=== PATIENT | male | born 1925 | race Caucasian/White ===

== ENCOUNTER 2016-04-28 23:02 | Inpatient (IN) | payer OTHER, BC ==
[2016-04-28 23:14] VITALS: BMI 24.6
--- NOTE | 2016-04-28 23:48 | PDOC ---
History of Present Illness - General History Source: Patient, Family (, Son), Old Records Exam Limitations: No Limitations - History of Present Illness Initial Comments: 04/29/16 00:03 The patient is an 89 year old male, with a significant past medical history of HTN, hyperlipidemia, GERD, [place] (2005), urostomy (ileal conduit) s/p bladder CA and a known periumbilical hernia, who presents to the emergency department with nausea and abdominal pain since approximately 2PM this afternoon. The patient localizes his abdominal pain to the periumbilical region. The patients and son are with him in the ED. His states that he has had a decreased appetite all day today due to the nausea. The patient denies fever, chills, any recent illnesses, vomiting, diarrhea or any dysuria. The patient denies shortness of breath or chest pain. Allergies: Levofloxacin Past Surgical History: Urostomy placement (2001) Social History: Non smoker. Denies alcohol or drug use. PCP: Dr. Rodney <Erma Bonilla - Last Filed: 04/29/16 00:03> <Donte Szymanski - Last Filed: 04/29/16 16:01> - General Chief Complaint: Pain, Acute Stated Complaint: ABD PAIN Time Seen by Provider: 04/28/16 23:04 Past History <Erma Bonilla - Last Filed: 04/29/16 00:03> - Past Medical History Asthma: No Cardiac Disorders: Yes (mi 2005) CVA: No COPD: No CHF: No Diabetes: No GI Disorders: Yes Disorders: Yes (urostomy s/p bladder ca) HTN: Yes Hypercholesterolemia: Yes Seizures: No Thyroid Disease: No - Surgical History Abdominal Surgery: Yes (urostomy s/p bladder ca) Appendectomy: No Cardiac Surgery: No Cholecystectomy: No Lung Surgery: No Neurologic Surgery: No Orthopedic Surgery: No - Immunization History Immunization Up to Date: Yes - Psycho/Social/Smoking Cessation Hx Anxiety: No Suicidal Ideation: No Smoking Status: No Smoking History: Never smoked Number of Cigarettes Smoked Daily: 0 Hx Alcohol Use: No Drug/Substance Use Hx: No Substance Use Type: None Hx Substance Use Treatment: No <Donte Szymanski - Last Filed: 04/29/16 16:01> - Past Medical History Allergies/Adverse Reactions: Allergies Allergy/AdvReac Type Severity Reaction Status Date / Time levofloxacin [From Levaquin] AdvReac Verified 04/28/16 23:12 Home Medications: Ambulatory Orders Aspirin 81 mg PO DAILY #0 04/06/11 Cholecalciferol (Vitamin D3) [Vitamin D3] 2,000 unit PO DAILY 09/28/13 Metoprolol Succinate [Toprol XL -] 12.5 mg PO DAILY 09/28/13 Co Q 10 100 mg PO DAILY 04/29/16 Review of Systems - Review of Systems Able to Perform ROS?: Yes Comments:: 04/28/16 23:52 GENERAL/CONSTITUTIONAL: +Decreased appetite. No fever or chills. No weakness. HEAD, EYES, EARS, NOSE AND THROAT: No change in vision. No ear pain or discharge. No sore throat. CARDIOVASCULAR: No chest pain or shortness of breath. RESPIRATORY: No cough, wheezing, or hemoptysis. GASTROINTESTINAL: +Nausea, abdominal pain. No vomiting, diarrhea or constipation. GENITOURINARY: No dysuria, frequency, or change in urination. MUSCULOSKELETAL: No joint or muscle swelling or pain. No neck or back pain. SKIN: No rash. NEUROLOGIC: No headache, vertigo, loss of consciousness, or change in strength/ sensation. ENDOCRINE: No increased thirst. No abnormal weight change. HEMATOLOGIC/LYMPHATIC: No anemia, easy bleeding, or history of blood clots. ALLERGIC/IMMUNOLOGIC: No hives or skin allergy. <Erma Bonilla - Last Filed: 04/29/16 00:03> *Physical Exam - Vital Signs Last Vital Signs Temp Pulse Resp BP Pulse Ox 97.7 F 66 17 188/73 97 04/28/16 23:12 04/28/16 23:12 04/28/16 23:12 04/28/16 23:12 04/28/16 23:12 - Physical Exam Comments: 04/28/16 23:53 GENERAL: Awake, alert, and fully oriented, in no acute distress. HEAD: No signs of trauma. EYES: PERRLA, EOMI, sclera anicteric, conjunctiva clear. ENT: Auricles normal inspection, hearing grossly normal, nares patent, oropharynx clear without exudates. Moist mucosa. NECK: Normal ROM, supple, no lymphadenopathy, JVD, or masses. LUNGS: Breath sounds equal, clear to auscultation bilaterally. No wheezes, and no crackles. HEART: Regular rate and rhythm, normal S1 and S2, no murmurs, rubs or gallops. ABDOMEN: Periumbilical tenderness to palpation with a hernial defect. Ileostomy bag in place. Soft, normoactive bowel sounds. No guarding, no rebound. No masses. EXTREMITIES: Normal range of motion, no edema. No clubbing or cyanosis. No cords, erythema, or tenderness. NEUROLOGICAL: Cranial nerves II through XII grossly intact. Normal speech, gait is deferred. SKIN: Warm, dry, normal turgor, no rashes or lesions noted. <Erma Bonilla - Last Filed: 04/29/16 00:03> - Vital Signs Last Vital Signs Temp Pulse Resp BP Pulse Ox 97.7 F 66 17 188/73 97 04/28/16 23:12 04/28/16 23:12 04/28/16 23:12 04/28/16 23:12 04/28/16 23:12 <Donte Szymanski - Last Filed: 04/29/16 16:01> ED Treatment Course - LABORATORY CBC & Chemistry Diagram: 04/29/16 00:50 04/29/16 00:50 <Donte Szymanski - Last Filed: 04/29/16 16:01> *DC/Admit/Observation/Transfer - Attestations Scribe Attestion: 04/28/16 23:52 Documentation prepared by Erma Bonilla, acting as faculty i on call medical assistant for Donte Szymanski MD, /. <Erma Bonilla - Last Filed: 04/29/16 00:03> - Discharge Dispostion Admit: Yes <Donte Szymanski - Last Filed: 04/29/16 16:01> Diagnosis at time of Disposition: Small bowel obstruction - Discharge Dispostion Condition at time of disposition: Stable - Referrals
[2016-04-29] MEDS: SODIUM CHLORIDE 1,000 ML IV SCH (01:11)
[2016-04-29 01:15] LABS: BASOPHIL 0.3 % (0-2.0); MCH 30.2 pg (25.7-33.7); MCHC 33.5 g/dl (32.0-35.9); MEAN CELL VOLUME 90.1 fl (80-96); MEAN PLT VOLUME 9.2 fl (7.5-11.1); PLATELET COUNT 194 K/MM3 (134-434)
[2016-04-29 01:33] LABS: INR 1.14 (0.82-1.09); PROTHROMBIN TIME (PATIENT) 12.6 SEC (9.98-11.88)
[2016-04-29 01:36] LABS: ACTIVATED PTT 32.7 SECONDS (26.9-34.4)
[2016-04-29 01:42] LABS: ALBUMIN 3.6 g/dl (3.4-5.0); BILIRUBIN,TOTAL 1.1 mg/dL (0.2-1.0); CREATININE 1.3 mg/dL (0.7-1.3); TOT PROT 7.6 g/dl (6.4-8.2)
--- NOTE | 2016-04-29 03:47 | PDOC ---
*Physical Exam - Vital Signs Last Vital Signs Temp Pulse Resp BP Pulse Ox 97.7 F 66 17 188/73 97 04/28/16 23:12 04/28/16 23:12 04/28/16 23:12 04/28/16 23:12 04/28/16 23:12 ED Treatment Course - LABORATORY CBC & Chemistry Diagram: 04/29/16 00:50 04/29/16 00:50 - ADDITIONAL ORDERS Additional order review: Laboratory Results 04/29/16 04/29/16 00:50 00:50 INR 1.14 PTT (Actin FS) 32.7 Sodium 138 Potassium 4.5 D Chloride 101 Carbon Dioxide 27 Anion Gap 10 BUN 24 H D Creatinine 1.3 D Creat Clearance w eGFR 52.10 Random Glucose 142 H D Calcium 9.0 Total Bilirubin 1.1 H D AST 19 D ALT 15 D Alkaline Phosphatase 59 D Total Protein 7.6 D Albumin 3.6 D Lipase 79 04/29/16 00:50 RBC 4.45 D MCV 90.1 MCHC 33.5 RDW 15.0 MPV 9.2 Neutrophils % 92.0 H D Lymphocytes % 3.9 L D Monocytes % 3.8 Eosinophils % 0.0 D Basophils % 0.3 *DC/Admit/Observation/Transfer Diagnosis at time of Disposition: Small bowel obstruction - Discharge Dispostion Condition at time of disposition: Stable Admit: Yes - Referrals - Patient Instructions - Post Discharge Activity
--- NOTE | 2016-04-29 09:36 | CONSULT ---
Consult Consult Specialty:: Surgery Reason for Consultation:: Intestinal obstruction, incarcerated ventral hernia. - History of Present Illness History of Present Illness: 89 year old man, who is hard of hearing, is admitted with abdominal pain yesterday afternoon. He feels better now. His is with him. He is s/p total cystectomy with ileal bladder , performed about 15 years ago, at [facility]. He feels better today and wants the NG tube out. He has no abdominal pain, currently. - History Source History Provided By: Patient, Family Member - Past Medical History CAT SITTER: Yes: Dementia Cardio/Vascular: Yes: CAD, HTN, Hyperlipdemia Renal/: Yes: Cancer (bladder ca s/p uorstomy) - Past Surgical History Past Surgical History: Yes: Cystectomy, Stent - Alcohol/Substance Use Hx Alcohol Use: No - Smoking History Smoking history: Never smoked Have you smoked in the past 12 months: No Aproximately how many cigarettes per day: 0 Home Medications - Allergies Allergies/Adverse Reactions: Allergies Allergy/AdvReac Type Severity Reaction Status Date / Time levofloxacin [From Levaquin] AdvReac Verified 04/28/16 23:12 - Home Medications Home Medications: Ambulatory Orders Aspirin 81 mg PO DAILY #0 04/06/11 Cholecalciferol (Vitamin D3) [Vitamin D3] 2,000 unit PO DAILY 09/28/13 Metoprolol Succinate [Toprol XL -] 12.5 mg PO DAILY 09/28/13 Co Q 10 100 mg PO DAILY 04/29/16 Physical Exam Vital Signs: Vital Signs Temperature 98 F 04/29/16 09:00 Pulse Rate 70 04/29/16 09:00 Respiratory Rate 18 04/29/16 09:00 Blood Pressure 157/86 04/29/16 09:00 O2 Sat by Pulse Oximetry (%) 98 04/29/16 08:57 Gastrointestinal: Yes: Normal Bowel Sounds, Soft (Abdomen : Ileal conduit in right side of the abdomen. There are multiple, ventral hernias, 1) below and to the left of the umbilicus, which was painful on admission. Currently not tender , and no bowel or abdominal contents are palpated within the hernia. Another reducible hernia in right upper quadrant of abdomen. No abdominal distention , not tender.) Imaging - Results Cat Scan: Report Reviewed, Image Reviewed Problem List - Problems (1) Small bowel obstruction Code(s): K56.69 - OTHER INTESTINAL OBSTRUCTION (2) Incarcerated ventral hernia Code(s): K46.0 - UNSP ABDOMINAL HERNIA WITH OBSTRUCTION, WITHOUT GANGRENE (3) CAD (coronary artery disease) Code(s): I25.10 - ATHSCL HEART DISEASE OF [place] CORONARY ARTERY W/O ANG PCTRS (4) History of urostomy Code(s): Z98.89 - OTHER SPECIFIED POSTPROCEDURAL STATES * DO NOT USE * (5) History of urologic surgery Code(s): Z98.89 - OTHER SPECIFIED POSTPROCEDURAL STATES * DO NOT USE * Assessment/Plan Patient seems to have improved after admission. He has no abdominal pain , no tenderness. Will do follow up abdominal X-ray. If improved will D/C or clamp NG tube.
[2016-04-29] MEDS: CHOLECALCIFEROL (VITAMIN D3) 1,000 UNIT TABLET (FP) PO SCH (09:59)
[2016-04-29] MEDS: ASPIRIN 81 MG CHEWABLE TABLETS PO SCH (09:59)
[2016-04-29] MEDS: METOPROLOL SUCCINATE 25 MG TAB.SR.24H (FP) PO SCH (09:59)
--- NOTE | 2016-04-29 11:04 | EKG ---
Test Reason : Blood Pressure : / mmHG Vent. Rate : 067 BPM Atrial Rate : 067 BPM P-R Int : 244 ms QRS Dur : 108 ms QT Int : 452 ms P-R-T Axes : 090 -60 030 degrees QTc Int : 477 ms SINUS RHYTHM WITH SINUS ARRHYTHMIA WITH 1ST DEGREE A-V BLOCK PULMONARY DISEASE PATTERN LEFT ANTERIOR FASCICULAR BLOCK ABNORMAL ECG Confirmed by SANDRA LEWIS MD ([id number]) on 04/29/2016 11:03:53 AM Referred By: Confirmed By:SANDRA LEWIS MD
[2016-04-29 11:12] LABS: URINE APPEARANCE TURBID; URINE BILIRUBIN NEGATIVE (NEGATIVE); URINE COLOR AMBER; URINE GLUCOSE (UA) NEGATIVE (NEGATIVE); URINE KETONE NEGATIVE (NEGATIVE); URINE NITRITE NEGATIVE (NEGATIVE); URINE UROBILINOGEN NEGATIVE E.U./dl (0.2-1.0)
[2016-04-29 11:14] LABS: URINE BLOOD 1+ (NEGATIVE); URINE LEUK ESTERASE 3+ (NEGATIVE); URINE PROTEIN 2+ (NEGATIVE)
[2016-04-29 11:17] LABS: URINE RBC 35 /hpf (0-3); URINE WBC 1944 /hpf (3-5)
--- NOTE | 2016-04-29 11:48 | HP ---
Admitting History and Physical - Admission History of Present Illness: 89 year old male, with a significant past medical history of HTN, hyperlipidemia , GERD, [place] (2006), urostomy (ileal conduit) s/p bladder CA and a known periumbilical hernia, who presents to the emergency department with nausea and abdominal pain since approximately 2PM this afternoon. The patient localizes his abdominal pain to the periumbilical region. The patients and son are with him in the ED. His states that he has had a decreased appetite all day today due to the nausea. The patient denies fever, chills, any recent illnesses, vomiting, diarrhea or any dysuria. The patient denies shortness of breath or chest pain. 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 Cardiovascular: Yes: CAD, HTN, Hyperlipdemia, Other (mild aortic root dilation) Renal/: Yes: Cancer (bladder ca s/p ileal conduet) - Past Surgical History Past Surgical History: Yes: Cystectomy, Stent - Smoking History Smoking history: Never smoked Have you smoked in the past 12 months: No Aproximately how many cigarettes per day: 0 - Alcohol/Substance Use Hx Alcohol Use: No Home Medications - Allergies Allergies/Adverse Reactions: Allergies Allergy/AdvReac Type Severity Reaction Status Date / Time levofloxacin [From Levaquin] AdvReac Verified 04/28/16 23:12 - Home Medications Home Medications: Ambulatory Orders Aspirin 81 mg PO DAILY #0 04/06/11 Cholecalciferol (Vitamin D3) [Vitamin D3] 2,000 unit PO DAILY 09/28/13 Metoprolol Succinate [Toprol XL -] 12.5 mg PO DAILY 09/28/13 Co Q 10 100 mg PO DAILY 04/29/16 Physical Examination Vital Signs: Vital Signs Temperature 98 F 04/29/16 09:00 Pulse Rate 70 04/29/16 09:00 Respiratory Rate 18 04/29/16 09:00 Blood Pressure 157/86 04/29/16 09:00 O2 Sat by Pulse Oximetry (%) 98 04/29/16 08:57 Cardiovascular: Yes: Regular Rate and Rhythm Respiratory: Yes: Regular, CTA Bilaterally Gastrointestinal: Yes: Normal Bowel Sounds, Soft. No: Tenderness Edema: No Neurological: Yes: Alert, Oriented Imaging - Results Cat Scan: Report Reviewed Problem List - Problems (1) Incarcerated ventral hernia Assessment/Plan: NPO SURGERY ON BPARD T FUA Code(s): K46.0 - UNSP ABDOMINAL HERNIA WITH OBSTRUCTION, WITHOUT GANGRENE (2) Small bowel obstruction Assessment/Plan: ABOVE Code(s): K56.69 - OTHER INTESTINAL OBSTRUCTION (3) Bladder cancer Assessment/Plan: S/P ILEAL CONDUIT Code(s): C67.9 - MALIGNANT NEOPLASM OF BLADDER, UNSPECIFIED (4) CAD (coronary artery disease) Assessment/Plan: MONITOR Code(s): I25.10 - ATHSCL HEART DISEASE OF [place] CORONARY ARTERY W/O ANG PCTRS (5) Dilated aortic root Assessment/Plan: ECHO Code(s): I77.810 - THORACIC AORTIC ECTASIA
[2016-04-30] MEDS: SODIUM CHLORIDE 1,000 ML IV SCH ×2 (04:55→19:34)
[2016-04-30 07:14] LABS: BASOPHIL 0.1 % (0-2.0); MCH 30.3 pg (25.7-33.7); MCHC 33.4 g/dl (32.0-35.9); MEAN CELL VOLUME 90.6 fl (80-96); MEAN PLT VOLUME 8.6 fl (7.5-11.1); NEUTROPHILS 84.3 % (42.8-82.8); PLATELET COUNT 158 K/MM3 (134-434); RDW 14.8 % (11.9-15.9); WHITE BLOOD COUNT 9.1 K/mm3 (4.0-10.0)
[2016-04-30 07:41] LABS: BILIRUBIN,TOTAL 1.1 mg/dL (0.2-1.0); CALCIUM 8.2 mg/dL (8.5-10.1); CREATININE 1.2 mg/dL (0.7-1.3); TOT PROT 6.2 g/dl (6.4-8.2)
[2016-04-30] MEDS: ASPIRIN 81 MG CHEWABLE TABLETS PO SCH (09:21)
[2016-04-30] MEDS: METOPROLOL SUCCINATE 25 MG TAB.SR.24H (FP) PO SCH (09:22)
[2016-04-30] MEDS: CHOLECALCIFEROL (VITAMIN D3) 1,000 UNIT TABLET (FP) PO SCH (09:22)
--- NOTE | 2016-04-30 11:05 | PN ---
Progress Note (short form) - Note Progress Note: Surgery Attending Covering for Dr. Miller Patient feels better with no abdominal pain Denies flatus or BM Ngt drained 1400/24h, 200 overnight Afebrile, VSS WBC = 9K Abd: non-distended, mild tenderness over upper right parastomal area A: partial SBO R: f/u FUA today, continue NGT decompression, IVF
--- NOTE | 2016-04-30 11:49 | PN ---
Progress Note, Physician Chief Complaint: THIS IS MY FIRST MEDICAL ENCOUNTER WITH THIS PATIENT CHART AND EVENTS REVIEWED AWAKE, FAMILY BEDSIDE NGT IN PLACE WITH DRAINAGE - Current Medication List Current Medications: Active Medications Aspirin (Asa -) 81 mg PO DAILY [facility] Last Admin: 04/30/16 09:21 Dose: 81 mg Cholecalciferol (Vitamin D3 -) 2,000 unit PO DAILY [facility] Last Admin: 04/30/16 09:22 Dose: 2,000 unit Sodium Chloride (Normal Saline -) 1,000 mls @ 125 mls/hr IV ASDIR [facility] Last Admin: 04/30/16 04:55 Dose: 125 mls/hr Metoprolol Succinate (Toprol Xl -) 12.5 mg PO DAILY [facility] Last Admin: 04/30/16 09:22 Dose: 12.5 mg - Objective Vital Signs: Vital Signs Temperature 98.4 F 04/30/16 06:46 Pulse Rate 82 04/30/16 06:46 Respiratory Rate 18 04/30/16 06:46 Blood Pressure 150/82 04/30/16 06:46 O2 Sat by Pulse Oximetry (%) 97 04/29/16 16:00 Constitutional: Yes: Mild Distress Eyes: Yes: WNL HENT: Yes: WNL Neck: Yes: WNL Cardiovascular: Yes: WNL Respiratory: Yes: WNL Gastrointestinal: Yes: Tenderness Genitourinary: Yes: Other Musculoskeletal: Yes: Muscle Weakness Extremities: Yes: WNL Edema: No Peripheral Pulses WNL: Yes Integumentary: Yes: WNL Wound/Incision: Yes: Clean/Dry Neurological: Yes: Confusion, Pre-Existing Deficit ...Motor Strength: LLE, RLE Labs: CBC, BMP 04/30/16 06:50 04/30/16 06:50 INR, PTT INR 1.14 (0.82-1.09) 04/29/16 00:50 Problem List - Problems (1) Dilated aortic root Code(s): I77.810 - THORACIC AORTIC ECTASIA (2) History of urologic surgery Code(s): Z98.89 - OTHER SPECIFIED POSTPROCEDURAL STATES * DO NOT USE * (3) Incarcerated ventral hernia Code(s): K46.0 - UNSP ABDOMINAL HERNIA WITH OBSTRUCTION, WITHOUT GANGRENE (4) Small bowel obstruction Code(s): K56.69 - OTHER INTESTINAL OBSTRUCTION (5) Bladder cancer Code(s): C67.9 - MALIGNANT NEOPLASM OF BLADDER, UNSPECIFIED (6) CAD (coronary artery disease) Code(s): I25.10 - ATHSCL HEART DISEASE OF [place] CORONARY ARTERY W/O ANG PCTRS (7) Constipation Code(s): K59.00 - CONSTIPATION, UNSPECIFIED (8) Fever Code(s): R50.9 - FEVER, UNSPECIFIED (9) History of urostomy Code(s): Z98.89 - OTHER SPECIFIED POSTPROCEDURAL STATES * DO NOT USE * (10) UTI (lower urinary tract infection) Code(s): N39.0 - URINARY TRACT INFECTION, SITE NOT SPECIFIED Assessment/Plan NGT IN PLACE WITH GREE/DARK DRAINAGE SBO MONITORED DAILY NO FEVERS UTI++ WILL HOLD ABX FOR NOW AND ID CONSULT DR CAMPBELL DVT PROPHYLAXIS HERNIA STABLE
[2016-05-01 07:44] LABS: MCH 30.3 pg (25.7-33.7); MCHC 33.3 g/dl (32.0-35.9); MEAN CELL VOLUME 91.2 fl (80-96); MEAN PLT VOLUME 8.7 fl (7.5-11.1); PLATELET COUNT 147 K/MM3 (134-434); WHITE BLOOD COUNT 7.9 K/mm3 (4.0-10.0)
[2016-05-01 08:25] LABS: ALBUMIN 2.6 g/dl (3.4-5.0); ANION GAP 12 (8-16); CALCIUM 7.8 mg/dL (8.5-10.1); CO2 22 mmol/L (21-32); MAGNESIUM 2.1 mg/dL (1.8-2.4)
[2016-05-01 08:30] LABS: ALK PHOS 47 U/L (45-117); BILIRUBIN,TOTAL 1.1 mg/dL (0.2-1.0); CREATININE 1.1 mg/dL (0.7-1.3); GLUCOSE,RANDOM 67 mg/dL (74-106); PHOSPHOROUS 2.3 mg/dL (2.5-4.9); SGOT/AST 16 U/L (15-37); SGPT/ALT 11 U/L (12-78); TOT PROT 5.6 g/dl (6.4-8.2)
[2016-05-01] MEDS: ASPIRIN 81 MG CHEWABLE TABLETS PO SCH (09:40)
[2016-05-01] MEDS: CHOLECALCIFEROL (VITAMIN D3) 1,000 UNIT TABLET (FP) PO SCH (09:40)
[2016-05-01] MEDS: METOPROLOL SUCCINATE 25 MG TAB.SR.24H (FP) PO SCH (09:40)
--- NOTE | 2016-05-01 11:05 | PN ---
Progress Note, Physician Chief Complaint: ID Full note dictated - Current Medication List Current Medications: Active Medications Aspirin (Asa -) 81 mg PO DAILY [facility] Last Admin: 05/01/16 09:40 Dose: 81 mg Cholecalciferol (Vitamin D3 -) 2,000 unit PO DAILY [facility] Last Admin: 05/01/16 09:40 Dose: 2,000 unit Sodium Chloride (Normal Saline -) 1,000 mls @ 125 mls/hr IV ASDIR [facility] Last Admin: 04/30/16 19:34 Dose: Not Given Metoprolol Succinate (Toprol Xl -) 12.5 mg PO DAILY [facility] Last Admin: 05/01/16 09:40 Dose: 12.5 mg - Objective Vital Signs: Vital Signs Temperature 97.8 F 05/01/16 06:13 Pulse Rate 72 05/01/16 06:13 Respiratory Rate 20 05/01/16 06:13 Blood Pressure 162/79 05/01/16 06:13 O2 Sat by Pulse Oximetry (%) 97 04/30/16 21:00 Cardiovascular: Yes: Regular Rate and Rhythm, S1, S2 Respiratory: Yes: WNL, Regular, CTA Bilaterally, Diminished Gastrointestinal: Yes: Soft, Other (Ileostomy) Edema: No Labs: CBC, BMP 05/01/16 06:15 05/01/16 06:15 INR, PTT INR 1.14 (0.82-1.09) 04/29/16 00:50 Problem List - Problems (1) Small bowel obstruction Code(s): K56.69 - OTHER INTESTINAL OBSTRUCTION (2) UTI (urinary tract infection) Code(s): N39.0 - URINARY TRACT INFECTION, SITE NOT SPECIFIED Assessment/Plan Microbiology 04/29/16 10:39 Urine - Urostomy Bag Urine Culture - Final Escherichia Coli Laboratory Tests 04/29/16 05/01/16 10:30 06:15 WBC 7.9 Hgb 11.1 L Plt Count 147 Ur Leukocyte Esterase 3+ H Urine RBC 35 Urine WBC 1944 Assessment Asymptomatic bacteruria Plan No antibiotics at this time Maria Luz ORTIZ
--- NOTE | 2016-05-01 11:28 | PN ---
Progress Note, Physician Chief Complaint: AWAKE ALERT FEELING BETTER NGT IN PLACE FAMILY BEDSIDE - Current Medication List Current Medications: Active Medications Aspirin (Asa -) 81 mg PO DAILY [facility] Last Admin: 05/01/16 09:40 Dose: 81 mg Cholecalciferol (Vitamin D3 -) 2,000 unit PO DAILY [facility] Last Admin: 05/01/16 09:40 Dose: 2,000 unit Sodium Chloride (Normal Saline -) 1,000 mls @ 125 mls/hr IV ASDIR [facility] Last Admin: 04/30/16 19:34 Dose: Not Given Metoprolol Succinate (Toprol Xl -) 12.5 mg PO DAILY [facility] Last Admin: 05/01/16 09:40 Dose: 12.5 mg - Objective Vital Signs: Vital Signs Temperature 97.8 F 05/01/16 06:13 Pulse Rate 72 05/01/16 06:13 Respiratory Rate 20 05/01/16 06:13 Blood Pressure 162/79 05/01/16 06:13 O2 Sat by Pulse Oximetry (%) 97 04/30/16 21:00 Constitutional: Yes: No Distress Eyes: Yes: WNL HENT: Yes: WNL Neck: Yes: WNL Cardiovascular: Yes: WNL Respiratory: Yes: WNL Gastrointestinal: Yes: WNL Genitourinary: Yes: Other Musculoskeletal: Yes: Muscle Weakness Extremities: Yes: WNL Edema: No Peripheral Pulses WNL: Yes Integumentary: Yes: WNL Wound/Incision: Yes: Clean/Dry Neurological: Yes: WNL ...Motor Strength: WNL Psychiatric: Yes: WNL Labs: CBC, BMP 05/01/16 06:15 05/01/16 06:15 INR, PTT INR 1.14 (0.82-1.09) 04/29/16 00:50 Problem List - Problems (1) Dilated aortic root Code(s): I77.810 - THORACIC AORTIC ECTASIA (2) History of urologic surgery Code(s): Z98.89 - OTHER SPECIFIED POSTPROCEDURAL STATES * DO NOT USE * (3) Incarcerated ventral hernia Code(s): K46.0 - UNSP ABDOMINAL HERNIA WITH OBSTRUCTION, WITHOUT GANGRENE (4) Small bowel obstruction Code(s): K56.69 - OTHER INTESTINAL OBSTRUCTION (5) Bladder cancer Code(s): C67.9 - MALIGNANT NEOPLASM OF [place], UNSPECIFIED (6) CAD (coronary artery disease) Code(s): I25.10 - ATHSCL HEART DISEASE OF [place] CORONARY ARTERY W/O ANG PCTRS (7) Constipation Code(s): K59.00 - CONSTIPATION, UNSPECIFIED (8) Fever Code(s): R50.9 - FEVER, UNSPECIFIED (9) History of urostomy Code(s): Z98.89 - OTHER SPECIFIED POSTPROCEDURAL STATES * DO NOT USE * (10) UTI (lower urinary tract infection) Code(s): N39.0 - URINARY TRACT INFECTION, SITE NOT SPECIFIED Assessment/Plan NGT IN PLACE WITH GREE/DARK DRAINAGE SBO MONITORED DAILY NO FEVERS UTI++ WILL HOLD ABX FOR NOW AND ID CONSULT DR CAMPBELL DVT PROPHYLAXIS HERNIA STABLE UA AND CULTURE REVIEWED NO ABX AT THIS TIME REPEAT ABD XRAY
--- NOTE | 2016-05-01 13:27 | CONS ---
DATE OF CONSULTATION: DATE OF DICTATION: 05/01/2016 The patient is an 89-year-old male who I am asked to see to evaluate a positive urine culture. The patient was originally admitted with abdominal pain. He was seen in consultation by Surgery, noting a history of total cystectomy and ileostomy and a ureterostomy 15 years ago at [facility]. He was seen in consultation by the surgical service, with clinical impression of small-bowel obstruction, incarcerated ventral hernia. He has been managed with conservative management with nasogastric drainage and appears clinically to be improving. He has been afebrile and apparently a urine culture was obtained on admission, which had E coli with significant pyuria noted on urinalysis from the ureterostomy. 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 Past medical history includes surgery as noted above, hypertension, hyperlipidemia, GERD, prior HI, umbilical hernia. MEDICATIONS: Aspirin, metoprolol, vitamin D. Allergies to LEVOFLOXACIN. SOCIAL HISTORY: Never smoked, . No history of alcohol abuse. Family history reviewed and noncontributory. REVIEW OF SYSTEMS: All systems reviewed and noncontributory. PHYSICAL EXAMINATION: General: He was an alert, elderly male, who appeared in no acute distress, sitting in a wheelchair. Vital Signs: Temperature was 97.8, pulse 72, blood pressure 162/79, respirations 20. Neck: Supple. Lungs: Clear to percussion and auscultation with diminished breath sounds bilaterally. Heart: S1, S2. Regular rhythm without audible murmur. Abdomen: Soft and nontender with a ureterostomy. Extremities: Without clubbing, cyanosis or edema. White count 7.9, hemoglobin 11.1, platelets 147, INR 1.1, BUN 24, creatinine 1.1, bilirubin 1.1, AST 16, alkaline phosphatase 47. Urinalysis: 2000 white cells, 35 WBCs, 3+ leukocyte esterase. Urine culture with a rico-susceptible E coli. CAT scan of the abdomen and pelvis dated April 29 was reviewed and showed findings consistent with partial small-bowel obstruction, believed to be related to a parastomal hernia in the right lower quadrant, as well as status post cystectomy with ileal conduit. ASSESSMENT: An 89-year-old male with ileal conduit and asymptomatic bacteruria, growing Escherichia coli. At this point, in view of his asymptomatic status, would not recommend any antibiotic treatment. With regard to small-bowel obstruction he will be continued on conservative management with nasogastric tube and surgical followup. NIKOLAI CAMPBELL M.D. [id number]
--- NOTE | 2016-05-01 16:54 | PN ---
Progress Note (short form) - Note Progress Note: Surgery Patient just passed flatus and had a BM. Denies abdominal pain. NGT = 100 cc gastric fluid Abd: no longer distended, soft, no tenderness WBC=WNL FUA: contrast in colon with improvement of sb dilatation A: Resolving PARTIAL SBO R: keep NGT for now but may have ice chips possible NGT removal in am if patient continues to pass flatus.
[2016-05-02] MEDS: D5-1/2NS+10 MEQ KCL - 1,000 ML IV SCH (07:42)
--- NOTE | 2016-05-02 09:13 | PN ---
Progress Note, Physician Chief Complaint: ID Afebrile NAD NGT out - Current Medication List Current Medications: Active Medications Aspirin (Asa -) 81 mg PO DAILY [facility] Last Admin: 05/01/16 09:40 Dose: 81 mg Cholecalciferol (Vitamin D3 -) 2,000 unit PO DAILY [facility] Last Admin: 05/01/16 09:40 Dose: 2,000 unit Potassium Chloride/Dextrose/Sod Cl (D5-1/2ns+10 Meq Kcl -) 1,000 mls @ 100 mls/ hr IV ASDIR [facility] Metoprolol Succinate (Toprol Xl -) 12.5 mg PO DAILY [facility] Last Admin: 05/01/16 09:40 Dose: 12.5 mg - Objective Vital Signs: Vital Signs Temperature 98.6 F 05/02/16 06:27 Pulse Rate 57 L 05/02/16 06:27 Respiratory Rate 18 05/02/16 06:27 Blood Pressure 178/71 05/02/16 06:27 O2 Sat by Pulse Oximetry (%) 97 05/01/16 21:00 Constitutional: Yes: No Distress HENT: Yes: WNL, Atraumatic Neck: Yes: WNL, Supple Cardiovascular: Yes: Regular Rate and Rhythm, S1, S2. No: Murmur Respiratory: Yes: WNL, Regular, CTA Bilaterally Gastrointestinal: Yes: WNL, Normal Bowel Sounds, Soft. No: Tenderness Edema: No Labs: CBC, BMP 05/01/16 06:15 05/01/16 06:15 INR, PTT INR 1.14 (0.82-1.09) 04/29/16 00:50 Problem List - Problems (1) Small bowel obstruction Code(s): K56.69 - OTHER INTESTINAL OBSTRUCTION (2) UTI (urinary tract infection) Code(s): N39.0 - URINARY TRACT INFECTION, SITE NOT SPECIFIED Assessment/Plan Microbiology 04/29/16 10:39 Urine - Urostomy Bag Urine Culture - Final Escherichia Coli Laboratory Tests 05/01/16 05/01/16 06:15 06:15 WBC 7.9 Hgb 11.1 L Hct 33.5 L Plt Count 147 BUN 24 H Creatinine 1.1 Assessment Asymptomatic bacteruria Plan Will sign off Appreciate request for consultation Maria Luz ORTIZ
--- NOTE | 2016-05-02 10:32 | PN ---
Progress Note, Physician Chief Complaint: ng tube is out pulled out iv line just got back from xray- no intestinal obstruction - Current Medication List Current Medications: Active Medications Aspirin (Asa -) 81 mg PO DAILY [facility] Last Admin: 05/01/16 09:40 Dose: 81 mg Cholecalciferol (Vitamin D3 -) 2,000 unit PO DAILY [facility] Last Admin: 05/01/16 09:40 Dose: 2,000 unit Potassium Chloride/Dextrose/Sod Cl (D5-1/2ns+10 Meq Kcl -) 1,000 mls @ 100 mls/ hr IV ASDIR [facility] Metoprolol Succinate (Toprol Xl -) 12.5 mg PO DAILY [facility] Last Admin: 05/01/16 09:40 Dose: 12.5 mg - Objective Vital Signs: Vital Signs Temperature 98.6 F 05/02/16 06:27 Pulse Rate 57 L 05/02/16 06:27 Respiratory Rate 18 05/02/16 06:27 Blood Pressure 178/71 05/02/16 06:27 O2 Sat by Pulse Oximetry (%) 97 05/01/16 21:00 Constitutional: Yes: Calm Cardiovascular: Yes: Regular Rate and Rhythm, S1, S2 Respiratory: Yes: CTA Bilaterally Gastrointestinal: Yes: Soft, Hypoactive Bowel Sounds, Other (colosotmy) Edema: No Neurological: Yes: Alert, Oriented (to name) Labs: CBC, BMP 05/01/16 06:15 05/01/16 06:15 INR, PTT INR 1.14 (0.82-1.09) 04/29/16 00:50 Problem List - Problems (1) Small bowel obstruction Assessment/Plan: will have surgery follow up regarding if patient can take clear liquid diet or not Code(s): K56.69 - OTHER INTESTINAL OBSTRUCTION (2) UTI (urinary tract infection) Assessment/Plan: no need to treat_ ID saw patient Code(s): N39.0 - URINARY TRACT INFECTION, SITE NOT SPECIFIED (3) CAD (coronary artery disease) Assessment/Plan: aspirin and metoprolol Code(s): I25.10 - ATHSCL HEART DISEASE OF [place] CORONARY ARTERY W/O ANG PCTRS
[2016-05-02] MEDS ORDERED: PT OWN MED DRAWER 7, Y5N ONE (10:57)
[2016-05-02] MEDS: METOPROLOL SUCCINATE 25 MG TAB.SR.24H (FP) PO SCH (11:02)
[2016-05-02] MEDS: ASPIRIN 81 MG CHEWABLE TABLETS PO SCH (11:02)
[2016-05-02] MEDS: CHOLECALCIFEROL (VITAMIN D3) 1,000 UNIT TABLET (FP) PO SCH (11:03)
--- NOTE | 2016-05-02 11:12 | PN ---
Progress Note, Physician - Current Medication List Current Medications: Active Medications Aspirin (Asa -) 81 mg PO DAILY [facility] Last Admin: 05/02/16 11:02 Dose: 81 mg Cholecalciferol (Vitamin D3 -) 2,000 unit PO DAILY [facility] Last Admin: 05/02/16 11:03 Dose: 2,000 unit Potassium Chloride/Dextrose/Sod Cl (D5-1/2ns+10 Meq Kcl -) 1,000 mls @ 100 mls/ hr IV ASDIR [facility] Metoprolol Succinate (Toprol Xl -) 12.5 mg PO DAILY [facility] Last Admin: 05/02/16 11:02 Dose: 12.5 mg - Objective Vital Signs: Vital Signs Temperature 98.6 F 05/02/16 06:27 Pulse Rate 57 L 05/02/16 06:27 Respiratory Rate 18 05/02/16 06:27 Blood Pressure 178/71 05/02/16 06:27 O2 Sat by Pulse Oximetry (%) 97 05/01/16 21:00 Labs: CBC, BMP 05/01/16 06:15 05/01/16 06:15 INR, PTT INR 1.14 (0.82-1.09) 04/29/16 00:50 Problem List - Problems (1) Small bowel obstruction Code(s): K56.69 - OTHER INTESTINAL OBSTRUCTION (2) Incarcerated ventral hernia Code(s): K46.0 - UNSP ABDOMINAL HERNIA WITH OBSTRUCTION, WITHOUT GANGRENE (3) CAD (coronary artery disease) Code(s): I25.10 - ATHSCL HEART DISEASE OF [place] CORONARY ARTERY W/O ANG PCTRS (4) History of urostomy Code(s): Z98.89 - OTHER SPECIFIED POSTPROCEDURAL STATES * DO NOT USE * (5) History of urologic surgery Code(s): Z98.89 - OTHER SPECIFIED POSTPROCEDURAL STATES * DO NOT USE * Assessment/Plan Surgery: Patient has no abdominal pain. He is hungry , wanting to eat. Abdomen is soft, not tender, no abdominal distention. Abdominal X-ray shows no evidence of intestinal obstruction. Patient and his , and daughter were informed of the findings, and resolution of symptoms and intestinal obstruction. He has multiple ventral herniae. Resume oral feeding , starting with liquids today. Discharge home when diet is tolerated.
--- NOTE | 2016-05-03 08:10 | PN ---
Progress Note, Physician History of Present Illness: feels better - Current Medication List Current Medications: Active Medications Aspirin (Asa -) 81 mg PO DAILY [facility] Last Admin: 05/02/16 11:02 Dose: 81 mg Cholecalciferol (Vitamin D3 -) 2,000 unit PO DAILY [facility] Last Admin: 05/02/16 11:03 Dose: 2,000 unit Potassium Chloride/Dextrose/Sod Cl (D5-1/2ns+10 Meq Kcl -) 1,000 mls @ 100 mls/ hr IV ASDIR [facility] Last Admin: 05/02/16 07:42 Dose: Not Given Metoprolol Succinate (Toprol Xl -) 12.5 mg PO DAILY [facility] Last Admin: 05/02/16 11:02 Dose: 12.5 mg - Objective Vital Signs: Vital Signs Temperature 97.3 F L 05/03/16 06:42 Pulse Rate 64 05/03/16 06:42 Respiratory Rate 16 05/03/16 06:42 Blood Pressure 148/71 05/03/16 06:42 O2 Sat by Pulse Oximetry (%) 97 05/02/16 21:00 Cardiovascular: Yes: Regular Rate and Rhythm Respiratory: Yes: Regular, CTA Bilaterally Gastrointestinal: Yes: Normal Bowel Sounds, Soft. No: Tenderness Labs: CBC, BMP 05/01/16 06:15 05/01/16 06:15 INR, PTT INR 1.14 (0.82-1.09) 04/29/16 00:50 Problem List - Problems (1) Incarcerated ventral hernia Assessment/Plan: DIET PER SURGERY SURGERY ON BOARD Code(s): K46.0 - UNSP ABDOMINAL HERNIA WITH OBSTRUCTION, WITHOUT GANGRENE (2) Small bowel obstruction Assessment/Plan: RESOLVED MONITOR Code(s): K56.69 - OTHER INTESTINAL OBSTRUCTION (3) Bladder cancer Assessment/Plan: S/P ILEAL CONDUIT Code(s): C67.9 - MALIGNANT NEOPLASM OF BLADDER, UNSPECIFIED (4) CAD (coronary artery disease) Assessment/Plan: MONITOR Code(s): I25.10 - ATHSCL HEART DISEASE OF [place] CORONARY ARTERY W/O ANG PCTRS (5) Dilated aortic root Code(s): I77.810 - THORACIC AORTIC ECTASIA
[2016-05-03] MEDS ORDERED: PT OWN MED DRAWER 7, Y5N ONE (09:06)
[2016-05-03] MEDS: ASPIRIN 81 MG CHEWABLE TABLETS PO SCH (09:09)
[2016-05-03] MEDS: CHOLECALCIFEROL (VITAMIN D3) 1,000 UNIT TABLET (FP) PO SCH (09:09)
[2016-05-03] MEDS: METOPROLOL SUCCINATE 25 MG TAB.SR.24H (FP) PO SCH (09:09)
--- NOTE | 2016-05-03 12:42 | PN ---
Progress Note, Physician - Current Medication List Current Medications: Active Medications Aspirin (Asa -) 81 mg PO DAILY [facility] Last Admin: 05/03/16 09:09 Dose: 81 mg Cholecalciferol (Vitamin D3 -) 2,000 unit PO DAILY [facility] Last Admin: 05/03/16 09:09 Dose: 2,000 unit Potassium Chloride/Dextrose/Sod Cl (D5-1/2ns+10 Meq Kcl -) 1,000 mls @ 100 mls/ hr IV ASDIR [facility] Last Admin: 05/02/16 07:42 Dose: Not Given Metoprolol Succinate (Toprol Xl -) 12.5 mg PO DAILY [facility] Last Admin: 05/03/16 09:09 Dose: 12.5 mg - Objective Vital Signs: Vital Signs Temperature 97.5 F L 05/03/16 07:55 Pulse Rate 57 L 05/03/16 10:57 Respiratory Rate 25 H 05/03/16 07:55 Blood Pressure 189/72 05/03/16 10:57 O2 Sat by Pulse Oximetry (%) 97 05/02/16 21:00 Labs: CBC, BMP 05/01/16 06:15 05/01/16 06:15 INR, PTT INR 1.14 (0.82-1.09) 04/29/16 00:50 Problem List - Problems (1) Small bowel obstruction Code(s): K56.69 - OTHER INTESTINAL OBSTRUCTION (2) Incarcerated ventral hernia Code(s): K46.0 - UNSP ABDOMINAL HERNIA WITH OBSTRUCTION, WITHOUT GANGRENE (3) CAD (coronary artery disease) Code(s): I25.10 - ATHSCL HEART DISEASE OF [place] CORONARY ARTERY W/O ANG PCTRS (4) History of urostomy Code(s): Z98.89 - OTHER SPECIFIED POSTPROCEDURAL STATES * DO NOT USE * (5) History of urologic surgery Code(s): Z98.89 - OTHER SPECIFIED POSTPROCEDURAL STATES * DO NOT USE * Assessment/Plan Patient has no abdominal pain, having bowel movement . Abdomen is soft and not tender. Obstruction is relieved. Progress diet, Discharge planning.
[2016-05-03] MEDS: D5-1/2NS+10 MEQ KCL - 1,000 ML IV SCH (18:05)
--- NOTE | 2016-05-04 08:00 | DS ---
Physical Examination Vital Signs: Vital Signs Temperature 98.5 F 05/04/16 06:00 Pulse Rate 63 05/04/16 06:00 Respiratory Rate 20 05/04/16 06:00 Blood Pressure 170/67 05/04/16 06:00 O2 Sat by Pulse Oximetry (%) 97 05/03/16 21:00 Cardiovascular: Yes: Regular Rate and Rhythm Respiratory: Yes: Regular, CTA Bilaterally Gastrointestinal: Yes: Normal Bowel Sounds, Soft. No: Tenderness Labs: CBC, BMP 05/01/16 06:15 05/01/16 06:15 Discharge Summary Reason For Visit: SMALL BOWEL OBSTRUCTION Current Active Problems Dilated aortic root (Acute) History of urologic surgery (Acute) Incarcerated ventral hernia (Acute) Small bowel obstruction (Acute) UTI (urinary tract infection) (Acute) Hospital Course: 89 year old male, with a significant past medical history of HTN, hyperlipidemia , GERD, [place] (2005), urostomy (ileal conduit) s/p bladder CA and a known periumbilical hernia, who presents to the emergency department with nausea and abdominal pain since approximately 2PM this afternoon. The patient localizes his abdominal pain to the periumbilical region. The patients and son are with him in the ED. His states that he has had a decreased appetite all day today due to the nausea. The patient denies fever, chills, any recent illnesses, vomiting, diarrhea or any dysuria. The patient denies shortness of breath or chest pain. - Past Medical History ALLERGIST IMMUNOLOGIST: Yes: Dementia Cardiovascular: Yes: CAD, HTN, Hyperlipdemia, Other (mild aortic root dilation) Renal/: Yes: Cancer (bladder ca s/p ileal conduet) - Past Surgical History Past Surgical History: Yes: Cystectomy, Stent - Problems (1) Incarcerated ventral hernia Assessment/Plan: DIET ADVANCED PER SURGERY SURGERY ON BOARD---CLEARED FOR DC-- Code(s): K46.0 - UNSP ABDOMINAL HERNIA WITH OBSTRUCTION, WITHOUT GANGRENE (2) Small bowel obstruction Assessment/Plan: RESOLVED MONITOR Code(s): K56.69 - OTHER INTESTINAL OBSTRUCTION (3) Bladder cancer Assessment/Plan: S/P ILEAL CONDUIT Code(s): C67.9 - MALIGNANT NEOPLASM OF BLADDER, UNSPECIFIED (4) CAD (coronary artery disease) Assessment/Plan: MONITOR Code(s): I25.10 - ATHSCL HEART DISEASE OF [place] CORONARY ARTERY W/O ANG PCTRS (5) Dilated aortic root Code(s): I77.810 - THORACIC AORTIC ECTASIA Condition: Stable - Instructions Referrals: Suzanne Rodney MD [Primary Care Provider] - 1 Week Disposition: HOME - Home Medications Comprehensive Discharge Medication List: Ambulatory Orders Aspirin 81 mg PO DAILY #0 04/06/11 Cholecalciferol (Vitamin D3) [Vitamin D3] 2,000 unit PO DAILY 09/28/13 Metoprolol Succinate [Toprol XL -] 12.5 mg PO DAILY 09/28/13 Co Q 10 100 mg PO DAILY 04/29/16
[2016-05-04 08:37] LABS: BASOPHIL 0.4 % (0-2.0); EOSINOPHIL 0.5 % (0-4.5); MCH 30.2 pg (25.7-33.7); MCHC 33.4 g/dl (32.0-35.9); MEAN CELL VOLUME 90.6 fl (80-96); MEAN PLT VOLUME 7.8 fl (7.5-11.1); NEUTROPHILS 75.9 % (42.8-82.8); PLATELET COUNT 157 K/MM3 (134-434); WHITE BLOOD COUNT 7.3 K/mm3 (4.0-10.0)
[2016-05-04 09:19] LABS: ALBUMIN 2.5 g/dl (3.4-5.0); ALK PHOS 43 U/L (45-117); ANION GAP 8 (8-16); BILIRUBIN,TOTAL 0.8 mg/dL (0.2-1.0); CALCIUM 8.4 mg/dL (8.5-10.1); CO2 25 mmol/L (21-32); GLUCOSE,RANDOM 94 mg/dL (74-106); SGOT/AST 11 U/L (15-37); SGPT/ALT 12 U/L (12-78); TOT PROT 5.3 g/dl (6.4-8.2)
[2016-05-04] MEDS: METOPROLOL SUCCINATE 25 MG TAB.SR.24H (FP) PO SCH (09:55)
[2016-05-04] MEDS: CHOLECALCIFEROL (VITAMIN D3) 1,000 UNIT TABLET (FP) PO SCH (09:56)
[2016-05-04] MEDS: ASPIRIN 81 MG CHEWABLE TABLETS PO SCH (09:56)
[2016-05-04] MEDS ORDERED: amLODIPine BESYLATE 5 MG TABLET (FP) PO SCH (10:00)
[2016-05-04] MEDS ORDERED: POTASSIUM CHLORIDE TABS 20 MEQ TABLET.ER (FP) PO ONE (10:49)
[2016-05-04 12:55] VITALS: BP 157/76; PULSE 74; TEMP 98.2
== END 2016-05-04 14:55 | disposition home health service (06) | DRG 394 ==
LOC: JER 23:02 → JERBED 04-29 03:47 → UNDOADMIN 04-29 03:50 → J4W 04-29 06:55 → J8W 04-29 12:17
PROVIDERS: ADMIT Family Medicine; ATTEND Family Medicine
PROC: 0D9670Z Drainage of Stomach with Drainage Device, Via Natural or Artificial Opening (ICD-10-PCS; principal; 2016-04-29)
DX: K43.6 Other and unspecified ventral hernia with obstruction, without gangrene (principal); N39.0 Urinary tract infection, site not specified; E78.5 Hyperlipidemia, unspecified; I10 Essential (primary) hypertension; K21.9 Gastro-esophageal reflux disease without esophagitis; I25.2 Old myocardial infarction; Z85.51 Personal history of malignant neoplasm of bladder; I25.10 Atherosclerotic heart disease of native coronary artery without angina pectoris; I77.810 Thoracic aortic ectasia
CPT/HCPCS: 36415; 71010-TC; 71020-TC; 74020-TC; 74177-TC; 80053; 81003; 81015; 83690; 83735; 84100; 85025; 85027; 85610; 85730; 87086; 87186; 93005; 93010; 93306-TC; 99285-25

== ENCOUNTER 2016-05-08 04:59 | Inpatient (IN) | payer OTHER, BC ==
[2016-05-08] MEDS ORDERED: ACETAMINOPHEN 1000 MG/100 ML VIAL (NON FORMULARY) IVPB ONE (05:29)
[2016-05-08 05:35] VITALS: BMI 19.8
[2016-05-08 05:41] LABS: BASOPHIL 0.3 % (0-2.0); MCH 29.6 pg (25.7-33.7); MCHC 33.1 g/dl (32.0-35.9); MEAN CELL VOLUME 89.4 fl (80-96); MEAN PLT VOLUME 7.9 fl (7.5-11.1); NEUTROPHILS 93.5 % (42.8-82.8); PLATELET COUNT 198 K/MM3 (134-434); RDW 14.8 % (11.9-15.9); WHITE BLOOD COUNT 13.4 K/mm3 (4.0-10.0)
--- NOTE | 2016-05-08 05:42 | PDOC ---
History of Present Illness - General Stated Complaint: CHEST PAIN Time Seen by Provider: 05/08/16 05:24 - History of Present Illness Initial Comments: 05/08/16 05:38 CHIEF COMPLAINT: abdominal cramping, chest tightness HISTORY OF PRESENT ILLNESS: 89 yo M with hx of HTN, HLD, [place] (2005), urostomy s/ p bladder CA, GERD, and periumbilical hernia, was BIBEMS to the emergency department with complaints of abdominal cramping and chest tightness. Patient' s states around 9:30 last night the patient was complaining of lower abdominal cramping and "seemed like he was trying to vomit but never did." Overnight he complained of chills and then "chest tightness", and states "as soon as he said that I called the ambulance." Patient's states the last bowel movement he had was yesterday. Patient denies any current pain. denies any runny nose, cough, or sneezing. Patient was recently discharged from this hospital with diagnosis of partial self-resolving SBO. PAST MEDICAL HISTORY: Denies past medical history FAMILY HISTORY: Denies SOCIAL HISTORY: Lives at home with . Denies tobacco, alcohol, illicit drug use. SURGICAL HISTORY: mastoid, tonsils, pilonidal cysts ALLERGIES: No known drug allergies REVIEW OF SYSTEMS General/Constitutional: Chills. Denies weakness, weight change. HEENT: Denies change in vision. Cardiovascular: Denies chest pain or shortness of breath. Respiratory: Denies cough, wheezing, or hemoptysis. Gastrointestinal: Denies nausea, vomiting, diarrhea or constipation. Denies rectal bleeding. Genitourinary: Denies dysuria, frequency, or change in urination. Musculoskeletal: Denies joint or muscle swelling or pain. Denies neck or back pain. Skin and breasts: Denies rash or easy bruising. Neurologic: Denies headache, vertigo, loss of consciousness, or loss of sensation. PHYSICAL EXAM General Appearance: Febrile to 102.7F. Well-appearing, appropriately dressed. No apparent distress. HEENT: EOMI, PERRLA, normal ENT inspection, normal voice, TMs normal, pharynx normal. No conjunctival pallor. No photophobia, scleral icterus. Neck: Supple. Trachea midline. No tenderness, rigidity, carotid bruit, stridor , lymphadenopathy, or thyromegaly. Respiratory/Chest: Lungs CTAB. No shortness of breath, chest tenderness, respiratory distress, accessory muscle use. No crackles, rales, rhonchi, stridor , wheezing, dullness Cardiovascular: RRR. S1, S2. No JVD, murmur, bradycardia, tachycardia. Vascular Pulses: Dorsalis-Pedis (R): 2+, Dorsalis-Pedis (L): 2+ Gastrointestinal/Abdominal: Mild left lower quadrant tenderness on deep palpation. Urostomy bag to RUQ. Midline scar. Abdomen soft, non-distended. Lymphatic: No adenopathy, tenderness. Musculoskeletal/Extremities: Normal inspection. FROM of all extremities, normal capillary refill. Pelvis Stable. No CVA tenderness. No tenderness to extremities, pedal edema, swelling, erythema or deformity. Integumentary: Appropriate color, dry, warm. No cyanosis, erythema, jaundice or rash Neurologic: die caster II-XII intact. Fully oriented, alert. Appropriate mood/affect. Motor strength 5/5. No appreciable EOM palsy, facial droop or sensory deficit. Past History - Past Medical History Allergies/Adverse Reactions: Allergies Allergy/AdvReac Type Severity Reaction Status Date / Time levofloxacin [From Levaquin] Allergy Verified 05/08/16 12:49 Home Medications: Ambulatory Orders Aspirin 81 mg PO DAILY #0 04/06/11 Cholecalciferol (Vitamin D3) [Vitamin D3] 2,000 unit PO DAILY 09/28/13 Metoprolol Succinate [Toprol XL -] 12.5 mg PO DAILY 09/28/13 Co Q 10 100 mg PO DAILY 04/29/16 Amlodipine Besylate [Norvasc -] 5 mg PO DAILY #30 tablet 05/04/16 Anemia: No Asthma: No Cardiac Disorders: Yes (mi 2005) CVA: No COPD: No CHF: No Dementia: Yes Diabetes: No GI Disorders: Yes Disorders: Yes (urostomy s/p bladder ca) HTN: Yes Hypercholesterolemia: Yes Liver Disease: No Seizures: No Thyroid Disease: No - Surgical History Abdominal Surgery: Yes (urostomy s/p bladder ca) Appendectomy: No Cardiac Surgery: No Cholecystectomy: No Lung Surgery: No Neurologic Surgery: No Orthopedic Surgery: No - Immunization History Immunization Up to Date: Yes - Psycho/Social/Smoking Cessation Hx Anxiety: No Suicidal Ideation: No Smoking Status: No Smoking History: Never smoked Have you smoked in the past 12 months: No Number of Cigarettes Smoked Daily: 0 Information on smoking cessation initiated: No Hx Alcohol Use: No Drug/Substance Use Hx: No Substance Use Type: None Hx Substance Use Treatment: No *Physical Exam - Vital Signs Last Vital Signs Temp Pulse Resp BP Pulse Ox 102.7 F H 97 H 18 142/87 94 L 05/08/16 05:32 05/08/16 05:32 05/08/16 05:32 05/08/16 05:32 05/08/16 05:32 ED Treatment Course - LABORATORY CBC & Chemistry Diagram: 05/11/16 07:00 05/11/16 07:00 - RADIOLOGY Radiology Studies Ordered: Category Date Time Status CHEST X-RAY PORTABLE* [RAD] Stat Radiology 05/08/16 05:27 Ordered Medical Decision Making - Medical Decision Making 05/08/16 06:16 89 yo M with hx of HTN, HLD, [place] (2005), urostomy s/p bladder CA, GERD, and periumbilical hernia, was BIBEMS to the emergency department with complaints of abdominal cramping and chest tightness. -CBC, CMP, PT/INR, VBG, lactic acid -UA, UCx -CXR, EKG -Tylenol IVPB EKG unchanged from prior from 04/28/16. Labs: CBC elevated to 13.4. Urine turbid appearing, culture on previous admission with E.Coli, unclear if treated. -Zosyn IVPB 05/08/16 06:30 Labs: UA: WBC 4131 Lactic acid WNL 05/08/16 06:38 Labs: LFTs markedly elevated from prior admission - CMP: Bilirubin 3.7, AST 624, ALT 330 Attempted to d/c Tylenol, Tylenol already administered. -Abdomen ultrasound, eval hepatitis/acute caitlin Paged on-call GI MD Caro. Discussed case with MD Caro, who advises to admit for inpatient service, abdominal US, continue Zosyn, and MRCP. Will consult ID. Discussed case with MD Jimenez, covering for patient's MD Rodney. Will admit to med/surg. *DC/Admit/Observation/Transfer Diagnosis at time of Disposition: UTI (urinary tract infection), Elevated liver enzymes
[2016-05-08] MEDS ORDERED: PIPERACILLIN/TAZOB 3.375 GM/50 ML PRE-DOCKED IVPB ONE (05:45)
[2016-05-08 05:53] LABS: VENOUS BLOOD GAS HCO3 24.1 meq/L (19-25); VENOUS PH 7.55 (7.32-7.42)
[2016-05-08] MEDS ORDERED: ACETAMINOPHEN INJECTION 100 ML IVPB ONE (05:58)
[2016-05-08] MEDS ORDERED: PIPERACILLIN/TAZOB 3.375 GM 50 ML IVPB ONE (05:58)
[2016-05-08 06:00] LABS: INR 1.36 (0.82-1.09); PROTHROMBIN TIME (PATIENT) 15.1 SEC (9.98-11.88)
[2016-05-08 06:01] LABS: URINE APPEARANCE TURBID; URINE BILIRUBIN NEGATIVE (NEGATIVE); URINE COLOR YELLOW; URINE GLUCOSE (UA) NEGATIVE (NEGATIVE); URINE KETONE NEGATIVE (NEGATIVE); URINE NITRITE NEGATIVE (NEGATIVE); URINE UROBILINOGEN 4.0 E.U/dl E.U./dl (0.2-1.0)
[2016-05-08 06:14] LABS: URINE BLOOD 1+ (NEGATIVE); URINE LEUK ESTERASE 3+ (NEGATIVE); URINE PROTEIN 2+ (NEGATIVE)
[2016-05-08 06:16] LABS: URINE BACTERIA MANY /hpf (NONE SEEN); URINE RBC 28 /hpf (0-3); URINE WBC 4131 /hpf (3-5)
[2016-05-08 06:28] LABS: ALBUMIN 2.6 g/dl (3.4-5.0); ANION GAP 12 (8-16); BILIRUBIN,TOTAL 3.7 mg/dL (0.2-1.0); CALCIUM 7.9 mg/dL (8.5-10.1); CO2 22 mmol/L (21-32); GLUCOSE,RANDOM 108 mg/dL (74-106); SGPT/ALT 330 U/L (12-78); TOT PROT 6.1 g/dl (6.4-8.2)
[2016-05-08 06:31] LABS: ALK PHOS 301 U/L (45-117); SGOT/AST 624 U/L (15-37); TROPONIN I < 0.02 ng/ml (0.00-0.05)
--- NOTE | 2016-05-08 07:43 | PDOC ---
ED Treatment Course - LABORATORY CBC & Chemistry Diagram: 05/08/16 05:19 05/08/16 05:19 - ADDITIONAL ORDERS Additional order review: Laboratory Results 05/08/16 05/08/16 05/08/16 05:29 05:27 05:27 INR PTT (Actin FS) VBG pH 7.55 H POC VBG pCO2 27.9 L POC VBG pO2 68.2 H Mixed VBG HCO3 24.1 Sodium Potassium Chloride Carbon Dioxide Anion Gap BUN Creatinine Creat Clearance w eGFR Random Glucose Lactic Acid 1.209 Calcium Total Bilirubin AST ALT Alkaline Phosphatase Creatine Kinase Troponin I Total Protein Albumin Urine Color Urine Appearance Urine pH Ur Specific [place] Urine Protein Urine Glucose (UA) Urine Ketones Urine Blood Urine Nitrite Urine Bilirubin Urine Urobilinogen Ur Leukocyte Esterase Urine RBC Urine WBC Urine Bacteria Blood Type A POSITIVE Antibody Screen Negative 05/08/16 05/08/16 05/08/16 05:25 05:19 05:19 INR 1.36 H PTT (Actin FS) 28.0 VBG pH POC VBG pCO2 POC VBG pO2 Mixed VBG HCO3 Sodium 141 Potassium 3.5 Chloride 107 Carbon Dioxide 22 Anion Gap 12 BUN 12 D Creatinine 1.0 Creat Clearance w eGFR > 60 Random Glucose 108 H Lactic Acid Calcium 7.9 L Total Bilirubin 3.7 H D AST 624 H D ALT 330 H D Alkaline Phosphatase 301 H D Creatine Kinase 37 L Troponin I < 0.02 Total Protein 6.1 L Albumin 2.6 L Urine Color Yellow Urine Appearance Turbid Urine pH 7.0 Ur Specific [place] 1.009 Urine Protein 2+ H Urine Glucose (UA) Negative Urine Ketones Negative Urine Blood 1+ H Urine Nitrite Negative Urine Bilirubin Negative Urine Urobilinogen 4.0 e.u/dl Ur Leukocyte Esterase 3+ H Urine RBC 28 Urine WBC 4131 Urine Bacteria Many Blood Type Antibody Screen 05/08/16 05:25 Influenza Types A,B Antigen (CAITLYN) - Final Nasopharyngeal Swab - Final 05/08/16 05:19 RBC 4.01 MCV 89.4 MCHC 33.1 RDW 14.8 MPV 7.9 Neutrophils % 93.5 H D Lymphocytes % 1.9 L D Monocytes % 4.3 Eosinophils % 0.0 D Basophils % 0.3 - Medications Given in the ED: ED Medications Discontinued Medications Generic Name Dose Route Start Last Admin Trade Name Freq PRN Reason Stop Dose Admin Acetaminophen 1,000 mg 05/08/16 05:29 05/08/16 06:00 Ofirmev Injection - IVPB 05/08/16 05:30 1,000 mg ONCE ONE Administration Piperacillin Sod/Tazobactam Sod 3.375 gm 05/08/16 05:45 05/08/16 06:35 Zosyn 3.375gm Ivpb (Pre-Docked) IVPB 05/08/16 05:46 3.375 gm ONCE ONE Administration Protocol Progress Note - Progress Note Progress Note: I have received report from ORTIZ Barajas regarding this patient. Pt's initial chief complaint: lower abd cramping Pt's work up completed prior to sign out: labs, UA, influenza, CXR, EKG Pt treatment given from prior staff: tylenol, zosyn Pt plan to be completed: Awaiting call back from Dr. Ram for admission Dispo: Admission Medical Decision Making - Medical Decision Making A/P: 89 y/o febrile male with lower abd cramping found to have UTI and elevated liver enzymes. The patient is to be admitted. Waiting cotton converter back from Dr. Ram, cotton converter for Dr. Rodney. OTRIZ Barajas was still in the ER and spoke with Dr. Ram. He accepts admission to med/surg. *DC/Admit/Observation/Transfer Diagnosis at time of Disposition: UTI (urinary tract infection), Elevated liver enzymes - Discharge Dispostion Admit: Yes - Referrals Referrals: Suzanne Rodney MD [Primary Care Provider] -
[2016-05-08] MEDS: ASPIRIN 81 MG CHEWABLE TABLETS PO SCH (11:17)
[2016-05-08] MEDS: HEPARIN NA (PORCINE) 5,000 UNITS/ML 1ML VIAL SQ SCH ×2 (11:17→21:56)
[2016-05-08] MEDS: CHOLECALCIFEROL (VITAMIN D3) 1,000 UNIT TABLET (FP) PO SCH (11:18)
[2016-05-08] MEDS: METOPROLOL SUCCINATE 25 MG TAB.SR.24H (FP) PO SCH (11:18)
[2016-05-08] MEDS: amLODIPine BESYLATE 5 MG TABLET (FP) PO SCH (11:18)
--- NOTE | 2016-05-08 11:46 | HP ---
Admitting History and Physical - Primary Care Physician PCP: Suzanne Rodney - Admission Chief Complaint: HEPATITIS. UTI. 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 Cardiovascular: Yes: CAD, HTN, Hyperlipdemia, Other (mild aortic root dilation) Renal/: Yes: Cancer (bladder ca s/p ileal conduet) - Past Surgical History Past Surgical History: Yes: Cystectomy, Stent - Smoking History Smoking history: Never smoked Have you smoked in the past 12 months: No Aproximately how many cigarettes per day: 0 - Alcohol/Substance Use Hx Alcohol Use: No Home Medications - Allergies Allergies/Adverse Reactions: Allergies Allergy/AdvReac Type Severity Reaction Status Date / Time levofloxacin [From Levaquin] Allergy Verified 05/08/16 12:49 - Home Medications Home Medications: Ambulatory Orders Aspirin 81 mg PO DAILY #0 04/06/11 Cholecalciferol (Vitamin D3) [Vitamin D3] 2,000 unit PO DAILY 09/28/13 Metoprolol Succinate [Toprol XL -] 12.5 mg PO DAILY 09/28/13 Co Q 10 100 mg PO DAILY 04/29/16 Amlodipine Besylate [Norvasc -] 5 mg PO DAILY #30 tablet 05/04/16 Review of Systems Findings/Remarks: UNABLE TO OBTAIN HISTORY FROM PATIENT Physical Examination Vital Signs: Vital Signs Temperature 100.5 F H 05/08/16 10:03 Pulse Rate 89 05/08/16 06:47 Respiratory Rate 20 05/08/16 06:47 Blood Pressure 120/61 05/08/16 10:03 O2 Sat by Pulse Oximetry (%) 96 05/08/16 06:47 Constitutional: Yes: Calm Cardiovascular: Yes: Regular Rate and Rhythm, S1, S2 Respiratory: Yes: CTA Bilaterally Gastrointestinal: Yes: Normal Bowel Sounds, Soft Edema: No Imaging - Results Chest X-ray: Report Reviewed Ultrasound: Report Reviewed Problem List - Problems (1) Elevated liver enzymes Code(s): R74.8 - ABNORMAL LEVELS OF OTHER SERUM ENZYMES (2) UTI (urinary tract infection) Code(s): N39.0 - URINARY TRACT INFECTION, SITE NOT SPECIFIED (3) CAD (coronary artery disease) Code(s): I25.10 - ATHSCL HEART DISEASE [place] CORONARY ARTERY W/O ANG PCTRS (4) HTN (hypertension) Code(s): I10 - ESSENTIAL (PRIMARY) HYPERTENSION (5) History of urologic surgery Code(s): Z98.89 - OTHER SPECIFIED POSTPROCEDURAL STATES * DO NOT USE * Assessment/Plan HISTORY OF PRESENT ILLNESS: 89 yo M with hx of HTN, HLD, [place] (2005), urostomy s/ p bladder CA, GERD, and periumbilical hernia, was BIBEMS to the emergency department with complaints of abdominal cramping and chest tightness. Patient' s states around 9:30 last night the patient was complaining of lower abdominal cramping and "seemed like he was trying to vomit but never did." Overnight he complained of chills and then "chest tightness", and states "as soon as he said that I called the ambulance." Patient's states the last bowel movement he had was yesterday. Patient denies any current pain. denies any runny nose, cough, or sneezing. Patient was recently discharged from this hospital with diagnosis of partial self-resolving SBO. (1) Elevated liver enzymes Code(s): R74.8 - ABNORMAL LEVELS OF OTHER SERUM ENZYMES CASE D/W SURGERY -> R/O [facility] APPRECIATE GI CONSULT MRCP PLANNED NPO (2) UTI (urinary tract infection) Code(s): N39.0 - URINARY TRACT INFECTION, SITE NOT SPECIFIED FEVER LEUKOCYTOSIS ID CONSULTED F/U CULTURES (3) CAD (coronary artery disease) Code(s): I25.10 - ATHSCL HEART DISEASE [place] CORONARY ARTERY W/O ANG PCTRS TROP NEG -> F/U (4) HTN (hypertension) Code(s): I10 - ESSENTIAL (PRIMARY) HYPERTENSION ACCEPTABLE CONTROL (5) History of urologic surgery Code(s): Z98.89 - OTHER SPECIFIED POSTPROCEDURAL STATES * DO NOT USE * CASE D/W 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
--- NOTE | 2016-05-08 12:44 | CON.GI ---
Consult Consult Specialty:: GI: Dr. Caro covering for Dr. Rodriguez Referred by:: Dr. Rodney Reason for Consultation:: Abnormal LFTs - History of Present Illness Chief Complaint: Abdominal pain History of Present Illness: 89M admitted through [facility] ER for evaluation of abdominal pain, nausea, lack of appetite and fever 100.3 at home. This all occurred last night. he was recently admitted and discharged 05/04 after admission for SBO that was treated conservatively. He vomited at home (food material). In ER noted to be febrile with elevated transaminases / ALP / bilirubin and WBC of 13.4. He has never had an upper endoscopy or colonoscopy. Mr. Peterson's tells me that he was seeing Dr. Rodriguez for dysphagia but never had any work-up with him because other medical issues came up. 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 Cardio/Vascular: Yes: CAD, HTN, Hyperlipdemia, Other (mild aortic root dilation) Renal/: Yes: Cancer (bladder ca s/p ileal conduet) - Past Surgical History Past Surgical History: Yes: Cystectomy, Stent Additional Surgical History: Pilonidal cyst removel, tonsileectomy, mastoid surgery, ileal conduit - Alcohol/Substance Use Hx Alcohol Use: No History of Substance Use: reports: None - Smoking History Smoking history: Never smoked Have you smoked in the past 12 months: No Aproximately how many cigarettes per day: 0 - Social History Usual Living Arrangement: With Spouse ADL: Independent 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 Place of : [facility] History of Recent Travel: No Home Medications - Allergies Allergies/Adverse Reactions: Allergies Allergy/AdvReac Type Severity Reaction Status Date / Time levofloxacin [From Levaquin] Allergy Verified 05/08/16 12:49 - Home Medications Home Medications: Ambulatory Orders Aspirin 81 mg PO DAILY #0 04/06/11 Cholecalciferol (Vitamin D3) [Vitamin D3] 2,000 unit PO DAILY 09/28/13 Metoprolol Succinate [Toprol XL -] 12.5 mg PO DAILY 09/28/13 Co Q 10 100 mg PO DAILY 04/29/16 Amlodipine Besylate [Norvasc -] 5 mg PO DAILY #30 tablet 05/04/16 Family Disease History - Family Disease History Family Disease History: Other: Father ( 87: lung ca), Mother ( 59: DM complications), Brother (1 bro: : smoking complications), Sister (2, 1 , smoking complications) Other Family History: 4 healthy children, no fam h/o colon cancer or other Gi malignancy Review of Systems - Review of Systems Constitutional: reports: Chills, Loss of Appetite HENT: reports: Difficult Swallowing (when attempting to form swallow) Cardiovascular: denies: Chest Pain Respiratory: denies: SOB Gastrointestinal: reports: Abdominal Pain, Nausea, Vomiting. denies: Diarrhea, Melena, Rectal Bleeding Physical Exam-GI Vital Signs: Vital Signs Temperature 100.7 F Rectal 05/08/16 12:30 Pulse Rate 64 05/08/16 12:30 Respiratory Rate 20 05/08/16 12:30 Blood Pressure 130/55 05/08/16 12:30 O2 Sat by Pulse Oximetry (%) 96 on RA 05/08/16 12:30 Constitutional: Yes: Calm Eyes: No: Sclera Icterus Cardiovascular: Yes: Regular Rate and Rhythm. No: Murmur Respiratory: Yes: CTA Bilaterally Gastrointestinal Inspection: Yes: Scars (scar adjacent to ileal conduit on left abdomen). No: Distention ...Auscultate: Yes: Normoactive Bowel Sounds ...Palpate: Yes: Guarding (voluntary guarding RUQ), Tenderness (RUQ with voluntary guarding). No: Hepatomegaly, Splenomegaly ...Percussion: No: Tympanitic ...Rectal Exam: Yes: Guaiac Negative (copious light brown firm stool) Edema: No (No LE edema) Neurological: Yes: Alert Labs: INR, PTT INR 1.36 (0.82-1.09) H 05/08/16 05:19 Hepatic Panel Total Bilirubin 3.7 mg/dL (0.2-1.0) H D 05/08/16 05:19 AST 624 U/L (15-37) H D 05/08/16 05:19 ALT 330 U/L (12-78) H D 05/08/16 05:19 Alkaline Phosphatase 301 U/L (45-117) H D 05/08/16 05:19 Albumin 2.6 g/dl (3.4-5.0) L 05/08/16 05:19 Imaging - Results Ultrasound: Report Reviewed (thickened GB wall, pericholecystic fluid suspicion for acute cholecystitis) Problem List - Problems (1) Elevated liver enzymes Assessment/Plan: Suspected acute cholecystitis given physical exam findings, US findings / LFT abnormalities. Discussed this with Mrs. Peterson who was present at bedside. Also explained that the possibility of a concominant retained CBD stone would still need to be in the differential as well. CBD did appear non dilated on US however, as did intrahepatics. For now: NPO IV Hydration IV Abx Surgical evaluation Ordered repeat labs for today Ordered MRCP to further evaluate CBD Surgical consult: discussed case with Dr. Siegel. He said that he would come and see the patient and may recommend percutaneous drainage of the GB. Did discuss potential need for ERCP pending results from the above / Mr. Peterson 's clinical course Dr. Rodriguez will resume coverage 05/09/16 Code(s): R74.8 - ABNORMAL LEVELS OF OTHER SERUM ENZYMES
--- NOTE | 2016-05-08 12:47 | PN ---
Progress Note (short form) - Note Progress Note: ID consult dictated imp/reccd 89 year old man with PMH ileal conduit 15 years ago, mild dementia, recent admission for SBO- medically managed discharged home on Thursday 05/04 developed acute abdominal pain with nausea, vomiting times one and fever to 102 last night He came to ED this am. He has remained persistently febrile reports chills with fever elevated lfts noted US with acute cholycystitis acute cholycystitis biliary sepsis history ileal conduit mild dementia recent SBO d/w Dr Jimenez who will call for surgery consult NPO STACEY polo d/w at bedside
[2016-05-08] MEDS ORDERED: PIPERACILLIN/TAZOB 4.5 GM 100 ML IVPB ONE (13:28)
[2016-05-08] MEDS: PIPERACILLIN/TAZOB 4.5 GM/100 ML PRE-DOCKED IVPB SCH ×2 (13:50→19:03)
[2016-05-08] MEDS: DEXTROSE 5%-NORMAL SALINE 1,000 ML IV SCH (13:50)
--- NOTE | 2016-05-08 21:08 | CONS ---
DATE OF CONSULTATION: 05/08/2016 REFERRING PHYSICIAN: Sonu Jimenez MD REASON FOR REFERRAL: Possible cholecystitis. BRIEF HISTORY: This is an 89-year-old gentleman who was admitted to the [facility] emergency room for evaluation of abdominal pain associated with lack of appetite, nausea, and fever to 103 at home. Patient at this present time states he feels much better but still has some mild discomfort in his abdomen. He denies having specific pain in the right upper quadrant. Patient denies any change in stool color or urine color, however, the patient has an ileal conduit. In the emergency room, he underwent a repeat CAT scan. The repeat CT demonstrated some soft findings for possible acute cholecystitis. There were no obvious stones noted on the repeat CAT scan. There is no evidence of biliary dilatation. There is a questionable hint of fluid around the gallbladder and a mildly thickened gallbladder wall, mildly suggestive of cholecystitis. He has a leukocytosis of around 13,000. He has transaminases in the 600 and 300 range. His alkaline phosphatase is in the 300 range and his bilirubin is 3.7. Past medical history is significant for bladder carcinoma, hypertension, hyperlipidemia, coronary artery disease, and mild aortic root dilatation. PAST SURGICAL HISTORY: Exploratory laparotomy, total cystectomy, ileal conduit, pilonidal cyst excision, mastoid surgery. ALLERGIES: The patient has no obvious known drug allergies. MEDICATIONS: Refer to chart. PHYSICAL EXAMINATION: Abdomen is soft. There is no acute abdomen noted. It is nontender and it is not distended. He has a midline scar from xiphoid to pubis. He has an ileal conduit in the right upper abdomen. IMPRESSION/PLAN: Elevated transaminases associated with elevated bilirubin, chronic cholecystitis, questionable acute cholecystitis: This is an 89-year-old gentleman who has findings suggestive of mild acute cholecystitis but no gallstones are noted. He clearly has elevated transaminases and bilirubin. My concern at this time is this gentleman has a common duct stone and this will be evaluated by GI, either with an MRCP or an ERCP. If the MRCP is negative, at this point I would recommend against any acute surgical intervention until his transaminases and bilirubin normalize. Assuming everything normalizes and the patient is stable for surgery, we need to really consider the pros and cons of performing a cholecystectomy in this 89-year-old gentleman with his previous surgical history and medical issues. There is no good answer on surgical approach, since either way, the patient has possibility to damage the ileal conduit, which would lead to other complications. I think at this juncture, the best approach for this gentleman, should he need any surgical intervention for possible cholecystitis, would be bowel rest, IV antibiotics. If this patient does not improve with such management for the cholecystitis, he should undergo a cholecystostomy tube, done by Interventional Radiology. Prior to any intervention regarding the gallbladder, he clearly has to be cleared of a common duct stone. This will be done and managed by GI. At this point I do not think the patient should undergo any surgical intervention even if numbers improve. His surgical morbidity, given the ileal conduit in the right upper abdomen is significant either laparoscopically or open. The patient is 89 years old and the better part of valor may just be treating this gentleman conservatively with medical management on an as-needed basis. I have discussed at length with the family (son and daughter and the patient) regarding what is noted on CAT scan today, blood work, and what should and should not be done surgically. At this point the family understands my approach and wants a less aggressive approach if possible. They understand if the father does become more septic or develops problems from acute cholecystitis that is not responding to IV antibiotics and bowel rest, he will require a cholecystostomy tube for improvement. With regard to the elevated bilirubin and transaminases, this will be addressed by GI and managed as per our GI. At this point I will see this patient on a p.r.n. basis since he does not require any acute surgery and I do not foresee any surgery in the future for this gentleman. If things change in the future and you feel that he requires acute surgery or any surgical intervention, please re-consult me, I would be happy to reevaluate this patient, discuss pros and cons surgery with family, and proceed as needed. Thank you for allowing me to participate in the care of your patient. JUNG BRITT M.D. [place]/[id number] cc: Sonu Jimenez MD; Suzanne Rodney MD
--- NOTE | 2016-05-08 21:43 | CONS ---
DATE OF CONSULTATION: DATE OF DICTATION: 05/08/2016 INFECTIOUS DISEASE CONSULTATION REQUESTING PHYSICIAN: Sonu Jimenez M.D. HISTORY OF PRESENT ILLNESS: This is an 89-year-old man who I am seeing in the emergency room for fever. He was recently hospitalized in mid April from the to the for a small bowel obstruction. He has a history of an ileostomy for the last 15 years. He was treated medically for the bowel obstruction which resolved after going home. He was doing okay. He was really not eating that much, and yesterday he developed acute onset of abdominal pain with nausea. He had 1 episode of vomiting, and he had fever to 102. He came to the emergency room, and he was noted to have fever of 103 with elevated LFTs, alkaline phosphatase and bilirubin. His white count was 13.4. I am asked to see him for antibiotic manage During his admission for small bowel obstruction, he never had any fever. PAST MEDICAL HISTORY: Notable for mild dementia. He has a history of coronary artery disease, hypertension, hyperlipidemia, mild aortic root dilatation, and bladder cancer. SURGICAL HISTORY: Notable for cystectomy. He has an ileal conduit. He has had a pilonidal cyst removal, tonsillectomy and mastoid surgery many years ago. ALLERGIES: He is allergic to LEVAQUIN which gave him an Achilles tendon rupture. MEDICATION: At home include aspirin, vitamin D, metoprolol, Coenzyme Q, and amlodipine. FAMILY HISTORY: Notable for lung cancer in his father, mother with diabetes. He has 4 healthy children, and he has 3 great grandkids. SOCIAL HISTORY: He lives independently with his . They have been over 60 years. 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 There is no history of any recent travel. REVIEW OF SYSTEMS: No history of cigarette or substance use. The abdominal pain is new, he has not had it before. PHYSICAL EXAMINATION: General: He is awake and alert. He is answering questions. He is edentulous. His upper dentures are in. Vital signs: His T-max is 103.2, current temperature 100.5, pulse 89, blood pressure 120/61, respiratory rate 20. His O2 saturation is 96%. HEENT: Normocephalic. Eyes are mildly icteric. He is edentulous. His upper dentures are in. He has no pharyngitis. He has no thrush. Neck: Supple. Lungs: Clear to auscultation. Heart: Regular rate and rhythm. Abdomen: Soft. He has right upper quadrant pain on exam. He has an ileostomy with a bag in place. Extremities: Without edema. LABORATORY: His white count is 13.4, hemoglobin 11.9, platelets 198, INR 1.3. BUN and creatinine are 12 and 1.0 with a total bilirubin of 3.7, AST of 624, ALT of 330, alkaline phosphatase of 301. Urinalysis has 3+ leukocyte esterase with 4131 white cells. This is from his ileal conduit. Cultures are pending, and influenza screen was done in the emergency room, which was negative. Ultrasound of the right upper quadrant was done which was suggestive of acute cholecystitis. Chest x-ray was done which showed persistently elevated right hemidiaphragm. IMPRESSION: In summary, this is an elderly man admitted with sudden onset of fever, nausea, right upper quadrant pain, abnormal liver function tests consistent with acute cholecystitis, biliary sepsis. He is being seen currently by gastrointestinal who has recommended magnetic resonance cholangiopancreatography to rule out choledocholithiasis. I discussed with Dr. Jimenez who will call for surgical consult. He will be made n.p.o., intravenous fluids. Will treat him with Zosyn at this time. This was all discussed with his at the bedside. GANESH FU M.D. [id number] MTDD
--- NOTE | 2016-05-09 00:41 | EKG ---
Test Reason : Blood Pressure : / mmHG Vent. Rate : 092 BPM Atrial Rate : 092 BPM P-R Int : 270 ms QRS Dur : 106 ms QT Int : 374 ms P-R-T Axes : 071 -68 062 degrees QTc Int : 462 ms SINUS RHYTHM WITH 1ST DEGREE A-V BLOCK LEFT AXIS DEVIATION ABNORMAL ECG WHEN COMPARED WITH ECG OF 29-APR-2016 00:27, NO SIGNIFICANT CHANGE WAS FOUND Confirmed by AJITH SANTIAGO MD ([id number]) on 05/09/2016 12:40:35 AM Referred By: Confirmed By:AJITH SANTIAGO MD
[2016-05-09] MEDS ORDERED: PT OWN MED DRAWER 7, Y5N ONE ×3 (01:54→11:16)
[2016-05-09] MEDS: PIPERACILLIN/TAZOB 4.5 GM/100 ML PRE-DOCKED IVPB SCH ×3 (02:15→17:46)
[2016-05-09 08:12] LABS: BASOPHIL 0.1 % (0-2.0); EOSINOPHIL 0.4 % (0-4.5); MCH 29.5 pg (25.7-33.7); MCHC 33.1 g/dl (32.0-35.9); MEAN CELL VOLUME 89.4 fl (80-96); MEAN PLT VOLUME 7.7 fl (7.5-11.1); NEUTROPHILS 90.7 % (42.8-82.8); PLATELET COUNT 168 K/MM3 (134-434); RDW 15.1 % (11.9-15.9); WHITE BLOOD COUNT 11.2 K/mm3 (4.0-10.0)
[2016-05-09 09:08] LABS: ALBUMIN 2.1 g/dl (3.4-5.0); ALK PHOS 187 U/L (45-117); ANION GAP 9 (8-16); BILIRUBIN,TOTAL 4.6 mg/dL (0.2-1.0); CALCIUM 7.5 mg/dL (8.5-10.1); CO2 26 mmol/L (21-32); CREATININE 1.1 mg/dL (0.7-1.3); GLUCOSE,RANDOM 90 mg/dL (74-106); SGOT/AST 178 U/L (15-37); SGPT/ALT 211 U/L (12-78); TOT PROT 4.9 g/dl (6.4-8.2); TROPONIN I < 0.02 ng/ml (0.00-0.05)
--- NOTE | 2016-05-09 10:01 | PN ---
Progress Note (short form) - Note Progress Note: pain free this am no nausea or vomiting no abdominal pain no fever +jaundice alert Vital Signs Period Temp Pulse Resp BP Sys/Hutson Pulse Ox Last 24 Hr 97.6 F-100.5 F 58-88 16-18 117-132/51-69 97-100 +icterus cor-rrr lungs clear abd soft, +ileostony bag nontender ext no edema CBC, BMP 05/09/16 07:00 05/09/16 07:00 Laboratory Tests 05/08/16 05/09/16 05:19 07:00 Total Bilirubin 3.7 H D 4.6 H D AST 624 H D 178 H D ALT 330 H D 211 H D Alkaline Phosphatase 301 H D 187 H D Microbiology 05/08/16 05:25 Urine - Urine Clean Catch Urine Culture - Preliminary Non Lactose Fermenting Gnb Pending Organism 05/08/16 05:29 Blood - Peripheral Venous Blood Culture - Preliminary NO GROWTH OBTAINED AFTER 24 HOURS, INCUBATION TO CONTINUE FOR 4 DAYS. 05/08/16 05:19 Blood - Peripheral Venous Blood Culture - Preliminary NO GROWTH OBTAINED AFTER 24 HOURS, INCUBATION TO CONTINUE FOR 4 DAYS. 05/08/16 05:25 Nasopharyngeal Swab Influenza Types A,B Antigen (CAITLYN) - Final 05/08/16 05:25 Nasopharyngeal Swab - Final a/p biliary sepsis surgical consult noted for MRI today continue ivf and iv zosyn GI f/u d/w and daughter at bedside
[2016-05-09] MEDS: CHOLECALCIFEROL (VITAMIN D3) 1,000 UNIT TABLET (FP) PO SCH (10:04)
[2016-05-09] MEDS: METOPROLOL SUCCINATE 25 MG TAB.SR.24H (FP) PO SCH (10:04)
[2016-05-09] MEDS: DEXTROSE 5%-NORMAL SALINE 1,000 ML IV SCH (10:04)
[2016-05-09] MEDS: amLODIPine BESYLATE 5 MG TABLET (FP) PO SCH (10:05)
[2016-05-09] MEDS: PANTOPRAZOLE 20 MG TABLET (FP) PO SCH (10:05)
[2016-05-09] MEDS: ASPIRIN 81 MG CHEWABLE TABLETS PO SCH (10:05)
[2016-05-09] MEDS: HEPARIN NA (PORCINE) 5,000 UNITS/ML 1ML VIAL SQ SCH ×2 (10:05→22:33)
--- NOTE | 2016-05-09 11:05 | PN ---
GI Progress Note Subjective: GASTROENTEROLOGY CHART REVIEWED AND PATIENT EXAMINED DR BRITT'S CONSULT REVIEWED, CALLED MRI DEPT TO PUSH TO GET MRCP DONE TODAY NO PAIN NO FEVER SPOKE WITH HIS WHO IS HEALTH CARE [employer]OXY: SHE IS NOT AWARE OF DR BRITT'S RECOMMENDATIONS, CALL PLACED TO DR BRITT - Objective Vital Signs: Vital Signs Temperature 98.3 F 05/09/16 10:00 Pulse Rate 68 05/09/16 10:00 Respiratory Rate 16 05/09/16 10:00 Blood Pressure 154/84 05/09/16 10:00 O2 Sat by Pulse Oximetry (%) 100 05/08/16 16:26 Constitutional: No Distress, Calm Eyes: Yes: Sclera Icterus HENT: Yes: Normocephalic Cardiovascular: Yes: Regular Rate and Rhythm Respiratory: Yes: Regular Gastrointestinal Inspection: Yes: Scars, Other (RLQ ILEOCONDUIT) ...Auscultate: Yes: Normoactive Bowel Sounds ...Palpate: Yes: Soft Extremities: Yes: WNL Neurological: Yes: Alert, Oriented Psychiatric: Yes: Alert, Oriented Labs: CBC, BMP 05/09/16 07:00 05/09/16 07:00 INR, PTT INR 1.36 (0.82-1.09) H 05/08/16 05:19 Laboratory Tests 05/08/16 05/08/16 05/09/16 05:19 05:19 07:00 WBC 13.4 H D 11.2 H RBC 3.75 L Hgb 11.1 L Hct 33.5 L MCV 89.4 MCHC 33.1 RDW 15.1 Plt Count 168 MPV 7.7 Neutrophils % 90.7 H Lymphocytes % 4.2 L D Monocytes % 4.6 Eosinophils % 0.4 D Basophils % 0.1 INR 1.36 H Sodium Potassium Chloride Carbon Dioxide Anion Gap BUN Creatinine Creat Clearance w eGFR Random Glucose Total Bilirubin AST ALT Alkaline Phosphatase Creatine Kinase Troponin I Total Protein Albumin 05/09/16 07:00 WBC RBC Hgb Hct MCV MCHC RDW Plt Count MPV Neutrophils % Lymphocytes % Monocytes % Eosinophils % Basophils % INR Sodium 144 Potassium 3.2 L Chloride 109 H Carbon Dioxide 26 Anion Gap 9 BUN 14 Creatinine 1.1 Creat Clearance w eGFR > 60 Random Glucose 90 Total Bilirubin 4.6 H D AST 178 H D ALT 211 H D Alkaline Phosphatase 187 H D Creatine Kinase 14 L Troponin I < 0.02 Total Protein 4.9 L Albumin 2.1 L - ....Imaging Ultrasound: Image Reviewed MRI: Pending Problem List - Problems (1) Acute cholecystitis Assessment/Plan: MUCH IMPROVED, MAY HAVE PASSED STONE, FOR MRCP HOPEFULLY TODAY IF THIS IS NEGATIVE THEN DECISION BY ON NEXT STEP. SHOULD SPEAK WITH DR BRITT SHE HAS NO KNOWLEDGE OF HIS PLAN. IF MRCP IS NEGATIVE, FOLLOW LFT'S, SURGICAL FOLLOW UP. Code(s): K81.0 - ACUTE CHOLECYSTITIS (2) Elevated liver enzymes Assessment/Plan: IMPROVED BUT THIS WITH ELEVATED BILI, ALK PHOS IMPROVED. POSSIBLE PAST STONE, FOR MRCP TODAY CASE REVIEWED WITH NURSING STAFF AND DR CORTES Code(s): R74.8 - ABNORMAL LEVELS OF OTHER SERUM ENZYMES (3) Hx of primary malignant neoplasm of urinary bladder Code(s): Z85.51 - PERSONAL HISTORY OF MALIGNANT NEOPLASM OF BLADDER
--- NOTE | 2016-05-09 11:55 | PN ---
Progress Note, Physician Chief Complaint: awaitng MRCP on iv abx - Current Medication List Current Medications: Active Medications Amlodipine Besylate (Norvasc -) 5 mg PO DAILY [facility] Last Admin: 05/09/16 10:05 Dose: 5 mg Aspirin (Asa -) 81 mg PO DAILY [facility] Last Admin: 05/09/16 10:05 Dose: 81 mg Cholecalciferol (Vitamin D3 -) 2,000 unit PO DAILY [facility] Last Admin: 05/09/16 10:04 Dose: 2,000 unit Heparin Sodium (Porcine) (Heparin -) 5,000 unit SQ BID [facility] Last Admin: 05/09/16 10:05 Dose: 5,000 unit Dextrose/Sodium Chloride (D5-Ns -) 1,000 mls @ 100 mls/hr IV ASDIR [facility] Last Admin: 05/09/16 10:04 Dose: 100 mls/hr Metoprolol Succinate (Toprol Xl -) 12.5 mg PO DAILY [facility] Last Admin: 05/09/16 10:04 Dose: 12.5 mg Pantoprazole Sodium (Protonix -) 20 mg PO DAILY [facility] Last Admin: 05/09/16 10:05 Dose: 20 mg Piperacillin Sod/Tazobactam Sod (Zosyn 4.5gm Ivpb (Pre-Docked)) 4.5 gm IVPB Q8H -IV [facility] Last Admin: 05/09/16 11:00 Dose: 4.5 gm - Objective Vital Signs: Vital Signs Temperature 98.3 F 05/09/16 10:00 Pulse Rate 68 05/09/16 10:00 Respiratory Rate 16 05/09/16 10:00 Blood Pressure 154/84 05/09/16 10:00 O2 Sat by Pulse Oximetry (%) 100 05/08/16 16:26 Labs: CBC, BMP 05/09/16 07:00 05/09/16 07:00 INR, PTT INR 1.36 (0.82-1.09) H 05/08/16 05:19
--- NOTE | 2016-05-09 12:02 | PN ---
Progress Note, Physician Chief Complaint: awaitng MRCP on iv abx NPO - Current Medication List Current Medications: Active Medications Amlodipine Besylate (Norvasc -) 5 mg PO DAILY [facility] Last Admin: 05/09/16 10:05 Dose: 5 mg Aspirin (Asa -) 81 mg PO DAILY [facility] Last Admin: 05/09/16 10:05 Dose: 81 mg Cholecalciferol (Vitamin D3 -) 2,000 unit PO DAILY [facility] Last Admin: 05/09/16 10:04 Dose: 2,000 unit Heparin Sodium (Porcine) (Heparin -) 5,000 unit SQ BID [facility] Last Admin: 05/09/16 10:05 Dose: 5,000 unit Potassium Chloride/Dextrose/Sod Cl (D5-1/2ns+20 Meq Kcl -) 1,000 mls @ 100 mls/ hr IV ASDIR [facility] Metoprolol Succinate (Toprol Xl -) 12.5 mg PO DAILY [facility] Last Admin: 05/09/16 10:04 Dose: 12.5 mg Pantoprazole Sodium (Protonix -) 20 mg PO DAILY [facility] Last Admin: 05/09/16 10:05 Dose: 20 mg Piperacillin Sod/Tazobactam Sod (Zosyn 4.5gm Ivpb (Pre-Docked)) 4.5 gm IVPB Q8H -IV [facility] Last Admin: 05/09/16 11:00 Dose: 4.5 gm - Objective Vital Signs: Vital Signs Temperature 98.3 F 05/09/16 10:00 Pulse Rate 68 05/09/16 10:00 Respiratory Rate 16 05/09/16 10:00 Blood Pressure 154/84 05/09/16 10:00 O2 Sat by Pulse Oximetry (%) 100 05/08/16 16:26 Constitutional: Yes: Calm, Thin Cardiovascular: Yes: Regular Rate and Rhythm, S1, S2 Respiratory: Yes: CTA Bilaterally Gastrointestinal: Yes: Normal Bowel Sounds, Soft, Other (ileal conduit) Neurological: Yes: Alert (to name) Labs: CBC, BMP 05/09/16 07:00 05/09/16 07:00 INR, PTT INR 1.36 (0.82-1.09) H 05/08/16 05:19 Problem List - Problems (1) Elevated liver enzymes Assessment/Plan: gi note appreciate NPO MRCP r/o acute cholecystitis iv abx for now leukocytosis trending down ID on board surgical consult pending Code(s): R74.8 - ABNORMAL LEVELS OF OTHER SERUM ENZYMES (2) CAD (coronary artery disease) Assessment/Plan: asa and BB Code(s): I25.10 - ATHSCL HEART DISEASE OF [place] CORONARY ARTERY W/O ANG PCTRS (3) Hypokalemia Assessment/Plan: add to iv fluids Code(s): E87.6 - HYPOKALEMIA (4) Bladder cancer Assessment/Plan: s/p surgery and ileal conduit Code(s): C67.9 - MALIGNANT NEOPLASM OF BLADDER, UNSPECIFIED
[2016-05-09] MEDS: D5-1/2NS+20 MEQ KCL - 1,000 ML IV SCH (12:54)
[2016-05-10] MEDS: D5-1/2NS+20 MEQ KCL - 1,000 ML IV SCH ×2 (01:47→16:12)
[2016-05-10] MEDS: PIPERACILLIN/TAZOB 4.5 GM/100 ML PRE-DOCKED IVPB SCH ×3 (01:47→17:43)
[2016-05-10 07:23] LABS: MCH 30.3 pg (25.7-33.7); MCHC 33.7 g/dl (32.0-35.9); MEAN CELL VOLUME 89.8 fl (80-96); MEAN PLT VOLUME 8.2 fl (7.5-11.1); PLATELET COUNT 199 K/MM3 (134-434); RDW 15.5 % (11.9-15.9); WHITE BLOOD COUNT 9.3 K/mm3 (4.0-10.0)
[2016-05-10 08:09] LABS: ALBUMIN 2.3 g/dl (3.4-5.0); BILIRUBIN,TOTAL 5.5 mg/dL (0.2-1.0); CALCIUM 7.8 mg/dL (8.5-10.1); CREATININE 1.3 mg/dL (0.7-1.3); MAGNESIUM 1.7 mg/dL (1.8-2.4); TOT PROT 5.7 g/dl (6.4-8.2)
--- NOTE | 2016-05-10 08:50 | PN ---
Progress Note, Physician - Current Medication List Current Medications: Active Medications Amlodipine Besylate (Norvasc -) 5 mg PO DAILY [facility] Last Admin: 05/09/16 10:05 Dose: 5 mg Aspirin (Asa -) 81 mg PO DAILY [facility] Last Admin: 05/09/16 10:05 Dose: 81 mg Cholecalciferol (Vitamin D3 -) 2,000 unit PO DAILY [facility] Last Admin: 05/09/16 10:04 Dose: 2,000 unit Heparin Sodium (Porcine) (Heparin -) 5,000 unit SQ BID [facility] Last Admin: 05/09/16 22:33 Dose: 5,000 unit Potassium Chloride/Dextrose/Sod Cl (D5-1/2ns+20 Meq Kcl -) 1,000 mls @ 100 mls/ hr IV ASDIR [facility] Last Admin: 05/10/16 01:47 Dose: 100 mls/hr Metoprolol Succinate (Toprol Xl -) 12.5 mg PO DAILY [facility] Last Admin: 05/09/16 10:04 Dose: 12.5 mg Pantoprazole Sodium (Protonix -) 20 mg PO DAILY [facility] Last Admin: 05/09/16 10:05 Dose: 20 mg Piperacillin Sod/Tazobactam Sod (Zosyn 4.5gm Ivpb (Pre-Docked)) 4.5 gm IVPB Q8H -IV [facility] Last Admin: 05/10/16 01:47 Dose: 4.5 gm - Objective Vital Signs: Vital Signs Temperature 98.5 F 05/10/16 06:00 Pulse Rate 62 05/10/16 06:00 Respiratory Rate 18 05/10/16 06:00 Blood Pressure 109/52 05/10/16 06:00 O2 Sat by Pulse Oximetry (%) 93 L 05/09/16 21:00 Cardiovascular: Yes: Regular Rate and Rhythm Respiratory: Yes: Regular, CTA Bilaterally Gastrointestinal: Yes: Normal Bowel Sounds, Soft. No: Tenderness Labs: CBC, BMP 05/10/16 05:35 05/10/16 05:35 INR, PTT INR 1.36 (0.82-1.09) H 05/08/16 05:19 Assessment/Plan Problems (1) Elevated liver enzymes Assessment/Plan: gi note appreciate NPO MRCP DONE--AWAIT RESULTS---r/o acute cholecystitis iv abx for now leukocytosis trending down ID on board surgical consult noted Code(s): R74.8 - ABNORMAL LEVELS OF OTHER SERUM ENZYMES (2) CAD (coronary artery disease) Assessment/Plan: hold asa BB Code(s): I25.10 - ATHSCL HEART DISEASE OF [place] CORONARY ARTERY W/O ANG PCTRS (3) Hypokalemia Assessment/Plan: add to iv fluids Code(s): E87.6 - HYPOKALEMIA (4) Bladder cancer Assessment/Plan: s/p surgery and ileal conduit Code(s): C67.9 - MALIGNANT NEOPLASM OF BLADDER, UNSPECIFIED
--- NOTE | 2016-05-10 10:08 | PN ---
Progress Note (short form) - Note Progress Note: spoke w another daughter rhianna barnes and the yesterday. they do not want any surgery as like the the son and daughter i met on sun in the er. the pt is being managed for acute caitlin medically at this time. if pt is not responding to med mgt as determined by gi then a cholecystomy tube should be placed. if pt contines to improve from cholecystitis the family does not want cholecystectomy due to his loop conduit which could be damaged and in an 89 yo the risk out weighs the benefits... family aware of the potential complications w galstones. as stated in my consult from brian, given the high bili, alk phos and transanimases i feel pt needs to have the cbd evaluated and r/o for a cbd stone. mrcp done yesterday. results pnd. given the rise in bili and stabilizing elevated transaminases and alk phos consideration should be given for ercp. will leave up to gi. again no surg indicated at this time. will be avail as neededthank you
[2016-05-10] MEDS: ASPIRIN 81 MG CHEWABLE TABLETS PO SCH (10:35)
[2016-05-10] MEDS: CHOLECALCIFEROL (VITAMIN D3) 1,000 UNIT TABLET (FP) PO SCH (10:35)
[2016-05-10] MEDS: HEPARIN NA (PORCINE) 5,000 UNITS/ML 1ML VIAL SQ SCH ×2 (10:35→21:53)
[2016-05-10] MEDS: amLODIPine BESYLATE 5 MG TABLET (FP) PO SCH (10:35)
[2016-05-10] MEDS: METOPROLOL SUCCINATE 25 MG TAB.SR.24H (FP) PO SCH (10:35)
[2016-05-10] MEDS: PANTOPRAZOLE 20 MG TABLET (FP) PO SCH (10:37)
--- NOTE | 2016-05-10 11:13 | PN ---
Progress Note (short form) - Note Progress Note: resting comfortably no abdominal pain +jaundice alert Vital Signs Period Temp Pulse Resp BP Sys/Hutson Pulse Ox Last 24 Hr 98.5 F-98.5 F 57-62 18-18 109-126/52-76 93 +icterus cor-rrr lungs clear abd soft,nt +ileostomy ext no edema CBC, BMP 05/10/16 05:35 05/10/16 05:35 Microbiology 05/08/16 05:25 Urine - Urine Clean Catch Urine Culture - Preliminary Escherichia Coli Pending Organism 05/08/16 05:29 Blood - Peripheral Venous Blood Culture - Preliminary NO GROWTH OBTAINED AFTER 48 HOURS, INCUBATION TO CONTINUE FOR 3 DAYS. 05/08/16 05:19 Blood - Peripheral Venous Blood Culture - Preliminary NO GROWTH OBTAINED AFTER 48 HOURS, INCUBATION TO CONTINUE FOR 3 DAYS. 05/08/16 05:25 Nasopharyngeal Swab Influenza Types A,B Antigen (CAITLYN) - Final 05/08/16 05:25 Nasopharyngeal Swab - Final Laboratory Tests 05/08/16 05/09/16 05/10/16 05:19 07:00 05:35 Total Bilirubin 3.7 H D 4.6 H D 5.5 H AST 624 H D 178 H D 168 H ALT 330 H D 211 H D 211 H Alkaline Phosphatase 301 H D 187 H D 188 H MRCP recults pending a/p biliary sepsis surgical consult noted radiology called to expedite MRCP reading continue ivf and iv zosyn GI f/u d/w and daughter at bedside
--- NOTE | 2016-05-10 19:50 | PN ---
GI Progress Note Subjective: GASTROENTEROLOGY NO PAIN NO FEVER MRCP NOT YET DICTATED BUT REVIEWED WITH DR GARNICA: NO CBD STONES, NO DILATED DUCT, LIVER CYSTS, PANCREATIC CYSTS (IPMN), NO PANCREATIC MASS, VERY LARGE DISTENDED GALLBLADDER WITH SLUDGE AND DEBRIS, WALL IS THICK - Objective Vital Signs: Vital Signs Temperature 98.2 F 05/10/16 15:54 Pulse Rate 60 05/10/16 15:54 Respiratory Rate 18 05/10/16 15:54 Blood Pressure 135/74 05/10/16 15:54 O2 Sat by Pulse Oximetry (%) 98 05/10/16 09:00 Constitutional: No Distress Eyes: Yes: Sclera Icterus HENT: Yes: Normocephalic Neck: Yes: Supple Cardiovascular: Yes: Regular Rate and Rhythm Respiratory: Yes: Regular Gastrointestinal Inspection: Yes: WNL ...Auscultate: Yes: Normoactive Bowel Sounds ...Palpate: Yes: Soft Extremities: Yes: WNL Labs: CBC, BMP 05/10/16 05:35 05/10/16 05:35 INR, PTT INR 1.36 (0.82-1.09) H 05/08/16 05:19 Laboratory Tests 05/08/16 05/08/16 05/09/16 05:19 05:19 07:00 WBC RBC Hgb Hct MCV MCHC RDW Plt Count MPV INR 1.36 H Total Bilirubin 3.7 H D 4.6 H D AST 624 H D 178 H D ALT 330 H D 211 H D Alkaline Phosphatase 301 H D 187 H D 05/10/16 05/10/16 05:35 05:35 WBC 9.3 RBC 4.02 Hgb 12.2 Hct 36.1 MCV 89.8 MCHC 33.7 RDW 15.5 Plt Count 199 MPV 8.2 INR Total Bilirubin 5.5 H AST 168 H ALT 211 H Alkaline Phosphatase 188 H Problem List - Problems (1) Acute cholecystitis Assessment/Plan: CBD IS NOT DILATED AND HAS NO STONES. FAMILY HAS SPOKEN WITH SURGEON AND DO NOT WANT ANY SURGERY. SURGEON HAS RECOMMENDED A CHOLECYSTOSTOMY TUBE. IF THIS IS THE COURSE OF ACTION THAT HAS BEEN DECIDED ON THEN DR BRITT SHOULD PROCEED. IF HE WANTS FURTHER EVIDENCE OF A CLEAR CBD THEN A CHOLANGIOGRAM CAN BE DONE WITH PLACEMENT OF THE CHOLECYSTOSTOMY TUBE. TO PROCEED TO ERCP ON A PANCREAS WITH IPMN/CYSTS WHEN A GOOD MODALITY (MRCP) DOES NOT SHOW EVIDENCE OF CBD STONE IS ADDING TOO MUCH RISK FOR LITTLE GAIN. THE INCREASED BILIRUBIN AND TRANSAMINASES THAT HAVE STOPPED IMPROVING TO ME SUGGESTS ACUTE CHOLECYSTITIS. Code(s): K81.0 - ACUTE CHOLECYSTITIS (2) Elevated liver enzymes Code(s): R74.8 - ABNORMAL LEVELS OF OTHER SERUM ENZYMES (3) Hx of primary malignant neoplasm of urinary bladder Code(s): Z85.51 - PERSONAL HISTORY OF MALIGNANT NEOPLASM OF BLADDER
[2016-05-11] MEDS: PIPERACILLIN/TAZOB 4.5 GM/100 ML PRE-DOCKED IVPB SCH ×2 (01:42→09:26)
[2016-05-11] MEDS: D5-1/2NS+20 MEQ KCL - 1,000 ML IV SCH ×2 (04:11→14:43)
--- NOTE | 2016-05-11 07:06 | PN ---
Progress Note, Physician History of Present Illness: denies pain no cp - Current Medication List Current Medications: Active Medications Amlodipine Besylate (Norvasc -) 5 mg PO DAILY [facility] Last Admin: 05/10/16 10:35 Dose: 5 mg Cholecalciferol (Vitamin D3 -) 2,000 unit PO DAILY [facility] Last Admin: 05/10/16 10:35 Dose: 2,000 unit Heparin Sodium (Porcine) (Heparin -) 5,000 unit SQ BID [facility] Last Admin: 05/10/16 21:53 Dose: 5,000 unit Potassium Chloride/Dextrose/Sod Cl (D5-1/2ns+20 Meq Kcl -) 1,000 mls @ 100 mls/ hr IV ASDIR [facility] Last Admin: 05/11/16 04:11 Dose: 100 mls/hr Metoprolol Succinate (Toprol Xl -) 12.5 mg PO DAILY [facility] Last Admin: 05/10/16 10:35 Dose: 12.5 mg Pantoprazole Sodium (Protonix -) 20 mg PO DAILY [facility] Last Admin: 05/10/16 10:37 Dose: 20 mg Piperacillin Sod/Tazobactam Sod (Zosyn 4.5gm Ivpb (Pre-Docked)) 4.5 gm IVPB Q8H -IV [facility] Last Admin: 05/11/16 01:42 Dose: 4.5 gm - Objective Vital Signs: Vital Signs Temperature 97.9 F 05/10/16 22:00 Pulse Rate 76 05/10/16 22:00 Respiratory Rate 18 05/10/16 22:00 Blood Pressure 151/86 05/10/16 22:00 O2 Sat by Pulse Oximetry (%) 98 05/10/16 22:00 Cardiovascular: Yes: Regular Rate and Rhythm Respiratory: Yes: Regular, CTA Bilaterally Gastrointestinal: Yes: Normal Bowel Sounds, Soft. No: Tenderness Labs: CBC, BMP 05/10/16 05:35 05/10/16 05:35 INR, PTT INR 1.36 (0.82-1.09) H 05/08/16 05:19 Assessment/Plan Problems (1) Elevated liver enzymes Assessment/Plan: gi note appreciate NPO MRCP DONE--AWAIT RESULTS---r/o acute cholecystitis iv abx for now leukocytosis trending down ID on board surgical consult noted and i discussed plan with dr hunter---will d/w family Code(s): R74.8 - ABNORMAL LEVELS OF OTHER SERUM ENZYMES (2) CAD (coronary artery disease) Assessment/Plan: hold asa BB Code(s): I25.10 - ATHSCL HEART DISEASE OF [place] CORONARY ARTERY W/O ANG PCTRS (3) Hypokalemia Assessment/Plan: add to iv fluids Code(s): E87.6 - HYPOKALEMIA (4) Bladder cancer Assessment/Plan: s/p surgery and ileal conduit Code(s): C67.9 - MALIGNANT NEOPLASM OF BLADDER, UNSPECIFIED
[2016-05-11 08:18] LABS: BASOPHIL 0.4 % (0-2.0); MCHC 33.6 g/dl (32.0-35.9); MEAN CELL VOLUME 89.4 fl (80-96); MEAN PLT VOLUME 8.3 fl (7.5-11.1); NEUTROPHILS 80.8 % (42.8-82.8); PLATELET COUNT 181 K/MM3 (134-434); RDW 15.2 % (11.9-15.9); WHITE BLOOD COUNT 6.6 K/mm3 (4.0-10.0)
[2016-05-11 08:48] LABS: ALBUMIN 2.2 g/dl (3.4-5.0); CREATININE 1.2 mg/dL (0.7-1.3); TOT PROT 5.5 g/dl (6.4-8.2)
[2016-05-11 08:51] LABS: BILIRUBIN,TOTAL 4.5 mg/dL (0.2-1.0)
[2016-05-11] MEDS: CHOLECALCIFEROL (VITAMIN D3) 1,000 UNIT TABLET (FP) PO SCH (09:23)
[2016-05-11] MEDS: PANTOPRAZOLE 20 MG TABLET (FP) PO SCH (09:24)
[2016-05-11] MEDS: METOPROLOL SUCCINATE 25 MG TAB.SR.24H (FP) PO SCH (09:24)
[2016-05-11] MEDS: HEPARIN NA (PORCINE) 5,000 UNITS/ML 1ML VIAL SQ SCH ×2 (09:24→22:47)
[2016-05-11] MEDS: amLODIPine BESYLATE 5 MG TABLET (FP) PO SCH (09:24)
--- NOTE | 2016-05-11 15:04 | PN ---
Progress Note (short form) - Note Progress Note: Patient evaluated today. No abdominal pain and no complaints. ? cbd stone or passed cbd stone: pt better and labs better but not normal. No acute surgical intervention needed at this time. If patient and family really want gallbladder out I would be happy to re-evaluate in future. Will be available prn. Thank you.
[2016-05-11] MEDS: PIPERACILLIN/TAZOB 3.375 GM/50 ML PRE-DOCKED IVPB SCH (18:25)
--- NOTE | 2016-05-11 18:50 | PN ---
Progress Note (short form) - Note Progress Note: GASTROENTEROLGY New official reading from Dr Riddle suggests a possible small stone in CBD that is not dilating the CBD. Dr Siegel now stating that if the family wishes cholecystectomy in the future he would reevaluate. He has not ordered the placement of a gb tube. ERCP risk of pancreatitis in this patient is high. I have spoken with the again and now she tells me that the family wants the patient's urologist at [facility] to review the case. I have called Dr Riddle and asked him to postpone the placement of the cholecystostomy tube until the family makes a decision. Justice Rodriguez MD Problem List - Problems (1) Acute cholecystitis Code(s): K81.0 - ACUTE CHOLECYSTITIS (2) Elevated liver enzymes Code(s): R74.8 - ABNORMAL LEVELS OF OTHER SERUM ENZYMES (3) Hx of primary malignant neoplasm of urinary bladder Code(s): Z85.51 - PERSONAL HISTORY OF MALIGNANT NEOPLASM OF BLADDER
[2016-05-12] MEDS: PIPERACILLIN/TAZOB 3.375 GM/50 ML PRE-DOCKED IVPB SCH ×3 (01:29→17:50)
[2016-05-12] MEDS: D5-1/2NS+20 MEQ KCL - 1,000 ML IV SCH ×2 (01:30→16:50)
[2016-05-12] MEDS ORDERED: PT OWN MED DRAWER 7, Y5N ONE (08:47)
[2016-05-12] MEDS: PANTOPRAZOLE 20 MG TABLET (FP) PO SCH (09:04)
[2016-05-12] MEDS: METOPROLOL SUCCINATE 25 MG TAB.SR.24H (FP) PO SCH (09:05)
[2016-05-12] MEDS: CHOLECALCIFEROL (VITAMIN D3) 1,000 UNIT TABLET (FP) PO SCH (09:05)
[2016-05-12] MEDS: amLODIPine BESYLATE 5 MG TABLET (FP) PO SCH (09:05)
--- NOTE | 2016-05-12 09:25 | PN ---
Progress Note, Physician History of Present Illness: IN BED COMFORTABLE DENIES ANY PAIN - Current Medication List Current Medications: Active Medications Amlodipine Besylate (Norvasc -) 5 mg PO DAILY [facility] Last Admin: 05/12/16 09:05 Dose: 5 mg Cholecalciferol (Vitamin D3 -) 2,000 unit PO DAILY [facility] Last Admin: 05/12/16 09:05 Dose: 2,000 unit Heparin Sodium (Porcine) (Heparin -) 5,000 unit SQ BID [facility] Last Admin: 05/11/16 22:47 Dose: 5,000 unit Potassium Chloride/Dextrose/Sod Cl (D5-1/2ns+20 Meq Kcl -) 1,000 mls @ 100 mls/ hr IV ASDIR [facility] Last Admin: 05/12/16 01:30 Dose: 100 mls/hr Metoprolol Succinate (Toprol Xl -) 12.5 mg PO DAILY [facility] Last Admin: 05/12/16 09:05 Dose: 12.5 mg Pantoprazole Sodium (Protonix -) 20 mg PO DAILY [facility] Last Admin: 05/12/16 09:04 Dose: 20 mg Piperacillin Sod/Tazobactam Sod (Zosyn 3.375gm Ivpb (Pre-Docked)) 3.375 gm IVPB Q8H-IV [facility] PRN Reason: Protocol Last Admin: 05/12/16 09:04 Dose: 3.375 gm - Objective Vital Signs: Vital Signs Temperature 97.5 F L 05/12/16 06:00 Pulse Rate 60 05/12/16 08:59 Respiratory Rate 18 05/12/16 08:59 Blood Pressure 188/70 05/12/16 08:59 O2 Sat by Pulse Oximetry (%) 92 L 05/12/16 08:59 Cardiovascular: Yes: Regular Rate and Rhythm Respiratory: Yes: Regular, CTA Bilaterally Gastrointestinal: Yes: Normal Bowel Sounds, Soft Labs: CBC, BMP 05/11/16 07:00 05/11/16 07:00 INR, PTT INR 1.36 (0.82-1.09) H 05/08/16 05:19 Assessment/Plan Problems (1) Elevated liver enzymes Assessment/Plan: gi note appreciate NPO MRCP DONE-- cholecystitis--CBD NOT DILATED iv abx leukocytosis trending down ID on board surgical consult noted and i discussed plan with dr hunter---d/w family will pursue cholecystostomy tube--family agree d/w ir plan for today Code(s): R74.8 - ABNORMAL LEVELS OF OTHER SERUM ENZYMES (2) CAD (coronary artery disease) Assessment/Plan: hold asa BB Code(s): I25.10 - ATHSCL HEART DISEASE OF [place] CORONARY ARTERY W/O ANG PCTRS (3) Hypokalemia Assessment/Plan: add to iv fluids Code(s): E87.6 - HYPOKALEMIA (4) Bladder cancer Assessment/Plan: s/p surgery and ileal conduit Code(s): C67.9 - MALIGNANT NEOPLASM OF BLADDER, UNSPECIFIED
[2016-05-12 10:37] LABS: BASOPHIL 0.4 % (0-2.0); EOSINOPHIL 0.6 % (0-4.5); MCH 29.8 pg (25.7-33.7); MCHC 33.2 g/dl (32.0-35.9); MEAN CELL VOLUME 89.5 fl (80-96); MEAN PLT VOLUME 7.7 fl (7.5-11.1); NEUTROPHILS 81.6 % (42.8-82.8); PLATELET COUNT 188 K/MM3 (134-434); RDW 15.2 % (11.9-15.9); WHITE BLOOD COUNT 5.9 K/mm3 (4.0-10.0)
[2016-05-12 10:56] LABS: INR 1.28 (0.82-1.09); PROTHROMBIN TIME (PATIENT) 14.2 SEC (9.98-11.88)
[2016-05-12 10:59] LABS: ACTIVATED PTT 31.7 SECONDS (26.9-34.4)
[2016-05-12 11:05] LABS: ALBUMIN 2.2 g/dl (3.4-5.0); BILIRUBIN,TOTAL 3.6 mg/dL (0.2-1.0); CREATININE 1.2 mg/dL (0.7-1.3); TOT PROT 5.5 g/dl (6.4-8.2)
[2016-05-12] MEDS ORDERED: PIPERACILLIN/TAZOB 3.375 GM 50 ML IVPB ONE (12:53)
--- NOTE | 2016-05-12 15:07 | PN ---
Progress Note, Physician Chief Complaint: ID Biliary drain today complains of pain Zosyn - Current Medication List Current Medications: Active Medications Amlodipine Besylate (Norvasc -) 5 mg PO DAILY [facility] Last Admin: 05/12/16 09:05 Dose: 5 mg Cholecalciferol (Vitamin D3 -) 2,000 unit PO DAILY [facility] Last Admin: 05/12/16 09:05 Dose: 2,000 unit Heparin Sodium (Porcine) (Heparin -) 5,000 unit SQ BID [facility] Last Admin: 05/11/16 22:47 Dose: 5,000 unit Potassium Chloride/Dextrose/Sod Cl (D5-1/2ns+20 Meq Kcl -) 1,000 mls @ 100 mls/ hr IV ASDIR [facility] Last Admin: 05/12/16 01:30 Dose: 100 mls/hr Metoprolol Succinate (Toprol Xl -) 12.5 mg PO DAILY [facility] Last Admin: 05/12/16 09:05 Dose: 12.5 mg Pantoprazole Sodium (Protonix -) 20 mg PO DAILY [facility] Last Admin: 05/12/16 09:04 Dose: 20 mg Piperacillin Sod/Tazobactam Sod (Zosyn 3.375gm Ivpb (Pre-Docked)) 3.375 gm IVPB Q8H-IV [facility] PRN Reason: Protocol Last Admin: 05/12/16 09:04 Dose: 3.375 gm - Objective Vital Signs: Vital Signs Temperature 97.5 F L 05/12/16 06:00 Pulse Rate 64 05/12/16 14:02 Respiratory Rate 16 05/12/16 14:02 Blood Pressure 187/78 05/12/16 14:02 O2 Sat by Pulse Oximetry (%) 98 05/12/16 14:02 Constitutional: Yes: No Distress Neck: Yes: WNL, Supple Cardiovascular: Yes: S1, S2 Respiratory: Yes: WNL, Regular, CTA Bilaterally Gastrointestinal: Yes: WNL, Normal Bowel Sounds, Soft, Other (cholecystomy drain ) Edema: No Labs: CBC, BMP 05/12/16 10:15 05/12/16 10:15 INR, PTT INR 1.28 (0.82-1.09) H 05/12/16 10:15 Assessment/Plan Microbiology 05/08/16 05:25 Urine - Urine Clean Catch Urine Culture - Final Escherichia Coli Enterococcus Faecalis 05/08/16 05:29 Blood - Peripheral Venous Blood Culture - Preliminary NO GROWTH OBTAINED AFTER 96 HOURS, INCUBATION TO CONTINUE FOR 1 DAYS. Laboratory Tests 05/12/16 05/12/16 10:15 10:15 WBC 5.9 Hgb 11.7 Hct 35.1 L Plt Count 188 BUN 6 L D Creatinine 1.2 Creat Clearance w eGFR 57.14 Total Bilirubin 3.6 H AST 111 H ALT 144 H Alkaline Phosphatase 166 H Assessment Acute cholecystitis now with cholecystotomy drain Plan Continue current antibiotics bile culture sent today Maria Luz ORTIZ
--- NOTE | 2016-05-12 17:38 | PN ---
GI Progress Note Subjective: GASTROENTEROLOGY FAMILY CONSENTED TO CHOLECYSTOSTOMY TUBE, TUBE PLACED TODAY, AWAIT REPORTS LFT'S HAD IMPROVED THIS AM - Objective Vital Signs: Vital Signs Temperature 97.4 F L 05/12/16 14:46 Pulse Rate 62 05/12/16 14:46 Respiratory Rate 20 05/12/16 14:46 Blood Pressure 184/74 05/12/16 14:46 O2 Sat by Pulse Oximetry (%) 98 05/12/16 14:02 Eyes: Yes: Sclera Icterus HENT: Yes: Normocephalic Neck: Yes: Supple Cardiovascular: Yes: Regular Rate and Rhythm Respiratory: Yes: Regular Gastrointestinal Inspection: Yes: WNL ...Auscultate: Yes: Normoactive Bowel Sounds ...Palpate: Yes: Soft, Other (SOME TNEDERNESS AT PUNCTURE SITE, NO ERYTHEMA OR INFLAMATION) Extremities: Yes: WNL Labs: CBC, BMP 05/12/16 10:15 05/12/16 10:15 INR, PTT INR 1.28 (0.82-1.09) H 05/12/16 10:15 Laboratory Tests 05/09/16 05/10/16 05/11/16 07:00 05:35 07:00 Total Bilirubin 4.6 H D 5.5 H 4.5 H AST 178 H D 168 H 112 H D ALT 211 H D 211 H 158 H D Alkaline Phosphatase 187 H D 188 H 163 H 05/12/16 10:15 Total Bilirubin 3.6 H AST 111 H ALT 144 H Alkaline Phosphatase 166 H Problem List - Problems (1) Acute cholecystitis Assessment/Plan: CHOLECSYTOTOSTOMY TUBE PLACED, MANAGEMENT PER BING, WILL GIVE SOME ANALGESIA FOR PAIN AWAIT IR REPORTS Code(s): K81.0 - ACUTE CHOLECYSTITIS (2) Elevated liver enzymes Assessment/Plan: CONTINUE TO FOLLOW LABS Code(s): R74.8 - ABNORMAL LEVELS OF OTHER SERUM ENZYMES (3) Hx of primary malignant neoplasm of urinary bladder Code(s): Z85.51 - PERSONAL HISTORY OF MALIGNANT NEOPLASM OF BLADDER
[2016-05-12] MEDS ORDERED: HYDROmorphone HCL CARPU-JECT 2 MG/1 ML DISP.SYRIN IVPB PRN (17:41)
[2016-05-12] MEDS: HEPARIN NA (PORCINE) 5,000 UNITS/ML 1ML VIAL SQ SCH (21:47)
[2016-05-13] MEDS: PIPERACILLIN/TAZOB 3.375 GM/50 ML PRE-DOCKED IVPB SCH ×3 (02:36→17:33)
[2016-05-13] MEDS: D5-1/2NS+20 MEQ KCL - 1,000 ML IV SCH ×2 (02:38→15:12)
--- NOTE | 2016-05-13 08:18 | PN ---
Progress Note, Physician History of Present Illness: IN BED COMFORTABLE DENIES ANY PAIN s/p drain placement - Current Medication List Current Medications: Active Medications Amlodipine Besylate (Norvasc -) 5 mg PO DAILY [facility] Last Admin: 05/12/16 09:05 Dose: 5 mg Cholecalciferol (Vitamin D3 -) 2,000 unit PO DAILY [facility] Last Admin: 05/12/16 09:05 Dose: 2,000 unit Heparin Sodium (Porcine) (Heparin -) 5,000 unit SQ BID [facility] Last Admin: 05/12/16 21:47 Dose: 5,000 unit Hydromorphone HCl (Dilaudid Injection -) 2 mg IVPB Q6H PRN PRN Reason: PAIN Potassium Chloride/Dextrose/Sod Cl (D5-1/2ns+20 Meq Kcl -) 1,000 mls @ 100 mls/ hr IV ASDIR [facility] Last Admin: 05/13/16 02:38 Dose: 100 mls/hr Metoprolol Succinate (Toprol Xl -) 12.5 mg PO DAILY [facility] Last Admin: 05/12/16 09:05 Dose: 12.5 mg Pantoprazole Sodium (Protonix -) 20 mg PO DAILY [facility] Last Admin: 05/12/16 09:04 Dose: 20 mg Piperacillin Sod/Tazobactam Sod (Zosyn 3.375gm Ivpb (Pre-Docked)) 3.375 gm IVPB Q8H-IV [facility] PRN Reason: Protocol Last Admin: 05/13/16 02:36 Dose: 3.375 gm - Objective Vital Signs: Vital Signs Temperature 98.8 F 05/13/16 06:00 Pulse Rate 64 05/13/16 06:00 Respiratory Rate 18 05/13/16 06:00 Blood Pressure 146/90 05/13/16 06:00 O2 Sat by Pulse Oximetry (%) 93 L 05/12/16 21:00 Cardiovascular: Yes: Regular Rate and Rhythm Respiratory: Yes: Regular, CTA Bilaterally Gastrointestinal: Yes: Normal Bowel Sounds, Soft, Other (CHOLECYSTOSTOMY TUBE IN PLACE) Labs: CBC, BMP 05/12/16 10:15 05/12/16 10:15 INR, PTT INR 1.28 (0.82-1.09) H 05/12/16 10:15 Assessment/Plan Problems (1) Elevated liver enzymes Assessment/Plan: gi note appreciate NPO MRCP DONE-- cholecystitis--CBD NOT DILATED iv abx per id leukocytosis trending down ID on board surgical consult noted and i discussed plan with dr hunter---d/w family will pursue cholecystostomy tube--family agree S/P CHOECYSTOSTOMY PLACEMENT Code(s): R74.8 - ABNORMAL LEVELS OF OTHER SERUM ENZYMES (2) CAD (coronary artery disease) Assessment/Plan: hold asa BB Code(s): I25.10 - ATHSCL HEART DISEASE OF [place] CORONARY ARTERY W/O ANG PCTRS (3) Hypokalemia Assessment/Plan: add to iv fluids Code(s): E87.6 - HYPOKALEMIA (4) Bladder cancer Assessment/Plan: s/p surgery and ileal conduit Code(s): C67.9 - MALIGNANT NEOPLASM OF BLADDER, UNSPECIFIED PT EVAL
[2016-05-13 08:30] LABS: BASOPHIL 0.4 % (0-2.0); EOSINOPHIL 0.3 % (0-4.5); MCH 29.8 pg (25.7-33.7); MCHC 33.6 g/dl (32.0-35.9); MEAN CELL VOLUME 88.6 fl (80-96); MEAN PLT VOLUME 7.8 fl (7.5-11.1); NEUTROPHILS 82.7 % (42.8-82.8); PLATELET COUNT 175 K/MM3 (134-434); RDW 15.2 % (11.9-15.9); WHITE BLOOD COUNT 8.6 K/mm3 (4.0-10.0)
[2016-05-13 09:00] LABS: ALBUMIN 2.1 g/dl (3.4-5.0); BILIRUBIN,TOTAL 2.9 mg/dL (0.2-1.0); CREATININE 1.2 mg/dL (0.7-1.3); TOT PROT 5.5 g/dl (6.4-8.2)
[2016-05-13] MEDS: CHOLECALCIFEROL (VITAMIN D3) 1,000 UNIT TABLET (FP) PO SCH (10:32)
[2016-05-13] MEDS: HEPARIN NA (PORCINE) 5,000 UNITS/ML 1ML VIAL SQ SCH ×2 (10:32→21:53)
[2016-05-13] MEDS: PANTOPRAZOLE 20 MG TABLET (FP) PO SCH (10:32)
[2016-05-13] MEDS: amLODIPine BESYLATE 5 MG TABLET (FP) PO SCH (10:33)
[2016-05-13] MEDS: METOPROLOL SUCCINATE 25 MG TAB.SR.24H (FP) PO SCH (10:33)
--- NOTE | 2016-05-13 14:31 | PN ---
Progress Note (short form) - Note Progress Note: s/p cholycystotomy tube yesterday Vital Signs Period Temp Pulse Resp BP Sys/Hutson Pulse Ox Last 24 Hr 97.4 F-98.8 F 62-68 18-20 135-184/70-90 93 cor-rrr lungs clear abd soft, +ileostomy +biliary drain ext no edema CBC, BMP 05/13/16 08:15 05/13/16 08:15 Microbiology 05/12/16 14:00 Drainage Body Fluid Culture - Preliminary Non Lactose Fermenting Gnb 05/08/16 05:29 Blood - Peripheral Venous Blood Culture - Final NO GROWTH AFTER 5 DAYS INCUBATION 05/08/16 05:19 Blood - Peripheral Venous Blood Culture - Final NO GROWTH AFTER 5 DAYS INCUBATION 05/08/16 05:25 Urine - Urine Clean Catch Urine Culture - Final Escherichia Coli Enterococcus Faecalis 05/08/16 05:25 Nasopharyngeal Swab Influenza Types A,B Antigen (CAITLYN) - Final 05/08/16 05:25 Nasopharyngeal Swab - Final a/p acute cholycystitis- lfts starting to improve after drainage, cultures pending continue zosyn as ordered s/p ileostomy
--- NOTE | 2016-05-13 19:50 | PN ---
GI Progress Note Subjective: GASTROENTEROLOGY DOING OK, BILE HAS GROWN ORGANISM ALREADY MILD PAIN AT PUNTURE SITE CHOLANGIOGRAM : NO DILATED DUCT NO STONE BUT POSSBILE STRICTURE - Objective Vital Signs: Vital Signs Temperature 98.2 F 05/13/16 18:25 Pulse Rate 70 05/13/16 18:25 Respiratory Rate 20 05/13/16 18:25 Blood Pressure 138/74 05/13/16 18:25 O2 Sat by Pulse Oximetry (%) 94 L 05/13/16 09:00 Constitutional: No Distress Eyes: Yes: Conjunctiva Clear HENT: Yes: Normocephalic Neck: Yes: Trachea Midline Cardiovascular: Yes: Regular Rate and Rhythm Respiratory: Yes: Regular Gastrointestinal Inspection: Yes: WNL ...Auscultate: Yes: Normoactive Bowel Sounds ...Palpate: Yes: Soft ...Percussion: Yes: Other (RIGHT POSTERIOR UPPER QUANDRANT PERCUT TUBE) Neurological: Yes: WNL Labs: CBC, BMP 05/13/16 08:15 05/13/16 08:15 INR, PTT INR 1.28 (0.82-1.09) H 05/12/16 10:15 Laboratory Tests 05/09/16 05/10/16 05/11/16 07:00 05:35 07:00 Total Bilirubin 4.6 H D 5.5 H 4.5 H AST 178 H D 168 H 112 H D ALT 211 H D 211 H 158 H D Alkaline Phosphatase 187 H D 188 H 163 H 05/12/16 05/13/16 10:15 08:15 Total Bilirubin 3.6 H 2.9 H AST 111 H 78 H D ALT 144 H 122 H Alkaline Phosphatase 166 H 156 H - ....Imaging Other: Other (REVIEWED IR PROCEDURE NOTE) Problem List - Problems (1) Acute cholecystitis Assessment/Plan: CONTINUE IV ABX FOR NOW, FOLLOW LFTS, EVALUATION OF DISTAL CBD PROBABLY [facility] CAN ALWAYS SET UP APPOINTMENT WITH MY ASSOCIATE, DR MELISA THOMPSON. 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
[2016-05-14] MEDS: PIPERACILLIN/TAZOB 3.375 GM/50 ML PRE-DOCKED IVPB SCH ×3 (01:54→17:55)
[2016-05-14] MEDS: D5-1/2NS+20 MEQ KCL - 1,000 ML IV SCH ×2 (01:55→17:56)
[2016-05-14] MEDS: METOPROLOL SUCCINATE 25 MG TAB.SR.24H (FP) PO SCH (10:09)
[2016-05-14] MEDS: PANTOPRAZOLE 20 MG TABLET (FP) PO SCH (10:09)
[2016-05-14] MEDS: HEPARIN NA (PORCINE) 5,000 UNITS/ML 1ML VIAL SQ SCH ×2 (10:10→21:44)
[2016-05-14] MEDS: CHOLECALCIFEROL (VITAMIN D3) 1,000 UNIT TABLET (FP) PO SCH (10:10)
[2016-05-14] MEDS: amLODIPine BESYLATE 5 MG TABLET (FP) PO SCH (10:10)
--- NOTE | 2016-05-14 13:46 | PN ---
Progress Note, Physician History of Present Illness: IN BED COMFORTABLE DENIES ANY PAIN s/p drain placement - Current Medication List Current Medications: Active Medications Amlodipine Besylate (Norvasc -) 5 mg PO DAILY [facility] Last Admin: 05/14/16 10:10 Dose: 5 mg Cholecalciferol (Vitamin D3 -) 2,000 unit PO DAILY [facility] Last Admin: 05/14/16 10:10 Dose: 2,000 unit Heparin Sodium (Porcine) (Heparin -) 5,000 unit SQ BID [facility] Last Admin: 05/14/16 10:10 Dose: 5,000 unit Hydromorphone HCl (Dilaudid Injection -) 2 mg IVPB Q6H PRN PRN Reason: PAIN Metoprolol Succinate (Toprol Xl -) 12.5 mg PO DAILY [facility] Last Admin: 05/14/16 10:09 Dose: 12.5 mg Pantoprazole Sodium (Protonix -) 20 mg PO DAILY [facility] Last Admin: 05/14/16 10:09 Dose: 20 mg Piperacillin Sod/Tazobactam Sod (Zosyn 3.375gm Ivpb (Pre-Docked)) 3.375 gm IVPB Q8H-IV [facility] PRN Reason: Protocol Last Admin: 05/14/16 10:09 Dose: 3.375 gm - Objective Vital Signs: Vital Signs Temperature 98.5 F 05/14/16 06:00 Pulse Rate 64 05/14/16 12:07 Respiratory Rate 18 05/14/16 06:00 Blood Pressure 143/73 05/14/16 06:00 O2 Sat by Pulse Oximetry (%) 93 L 05/14/16 12:07 Cardiovascular: Yes: Regular Rate and Rhythm Respiratory: Yes: Regular, CTA Bilaterally Gastrointestinal: Yes: Soft, Other (C-T IN PLACE WITHDRAINAGE) Labs: CBC, BMP 05/13/16 08:15 05/13/16 08:15 INR, PTT INR 1.28 (0.82-1.09) H 05/12/16 10:15 Assessment/Plan Problems (1) Elevated liver enzymes Assessment/Plan: gi note appreciate NPO MRCP DONE-- cholecystitis--CBD NOT DILATED iv abx per id leukocytosis trending down ID on board surgical consult noted and i discussed plan with dr hunter---d/w family will pursue cholecystostomy tube--family agree S/P CHOECYSTOSTOMY PLACEMENT Code(s): R74.8 - ABNORMAL LEVELS OF OTHER SERUM ENZYMES (2) CAD (coronary artery disease) Assessment/Plan: hold asa BB Code(s): I25.10 - ATHSCL HEART DISEASE OF [place] CORONARY ARTERY W/O ANG PCTRS (3) Hypokalemia Assessment/Plan: add to iv fluids Code(s): E87.6 - HYPOKALEMIA (4) Bladder cancer Assessment/Plan: s/p surgery and ileal conduit Code(s): C67.9 - MALIGNANT NEOPLASM OF BLADDER, UNSPECIFIED PT EVAL
--- NOTE | 2016-05-14 17:44 | PN ---
GI Progress Note Subjective: GASTROENTEROLOGY NO PAIN DOING WELL - Objective Vital Signs: Vital Signs Temperature 98.5 F 05/14/16 15:21 Pulse Rate 69 05/14/16 15:21 Respiratory Rate 18 05/14/16 15:21 Blood Pressure 147/52 05/14/16 15:21 O2 Sat by Pulse Oximetry (%) 93 L 05/14/16 12:07 Constitutional: Calm Eyes: Yes: Conjunctiva Clear HENT: Yes: Normocephalic Cardiovascular: Yes: Regular Rate and Rhythm Respiratory: Yes: Regular Gastrointestinal Inspection: Yes: WNL ...Auscultate: Yes: Normoactive Bowel Sounds ...Palpate: Yes: Soft Extremities: Yes: WNL Neurological: Yes: WNL Labs: CBC, BMP 05/13/16 08:15 05/13/16 08:15 INR, PTT INR 1.28 (0.82-1.09) H 05/12/16 10:15 Problem List - Problems (1) Acute cholecystitis Assessment/Plan: ANTIBIOTICS PER ID OUTPATIENT ERCP TO EVALUATE STRICTURE, FAMILY TO CALL OFFICE SPOKE WITH , PATIENT AND DAUGHTER Code(s): K81.0 - ACUTE CHOLECYSTITIS (2) Common bile duct stricture Code(s): K83.1 - OBSTRUCTION OF BILE DUCT (3) Elevated liver enzymes Code(s): R74.8 - ABNORMAL LEVELS OF OTHER SERUM ENZYMES (4) Hx of primary malignant neoplasm of urinary bladder Code(s): Z85.51 - PERSONAL HISTORY OF MALIGNANT NEOPLASM OF BLADDER
[2016-05-15] MEDS: PIPERACILLIN/TAZOB 3.375 GM/50 ML PRE-DOCKED IVPB SCH ×3 (01:26→17:31)
--- NOTE | 2016-05-15 08:39 | PN ---
Progress Note, Physician History of Present Illness: IN BED COMFORTABLE DENIES ANY PAIN s/p drain placement - Current Medication List Current Medications: Active Medications Amlodipine Besylate (Norvasc -) 5 mg PO DAILY [facility] Last Admin: 05/14/16 10:10 Dose: 5 mg Cholecalciferol (Vitamin D3 -) 2,000 unit PO DAILY [facility] Last Admin: 05/14/16 10:10 Dose: 2,000 unit Heparin Sodium (Porcine) (Heparin -) 5,000 unit SQ BID [facility] Last Admin: 05/14/16 21:44 Dose: 5,000 unit Hydromorphone HCl (Dilaudid Injection -) 2 mg IVPB Q6H PRN PRN Reason: PAIN Metoprolol Succinate (Toprol Xl -) 12.5 mg PO DAILY [facility] Last Admin: 05/14/16 10:09 Dose: 12.5 mg Pantoprazole Sodium (Protonix -) 20 mg PO DAILY [facility] Last Admin: 05/14/16 10:09 Dose: 20 mg Piperacillin Sod/Tazobactam Sod (Zosyn 3.375gm Ivpb (Pre-Docked)) 3.375 gm IVPB Q8H-IV [facility] PRN Reason: Protocol Last Admin: 05/15/16 01:26 Dose: 3.375 gm - Objective Vital Signs: Vital Signs Temperature 98.2 F 05/15/16 06:00 Pulse Rate 65 05/15/16 06:00 Respiratory Rate 18 05/15/16 06:00 Blood Pressure 144/74 05/15/16 06:00 O2 Sat by Pulse Oximetry (%) 94 L 05/14/16 21:00 Cardiovascular: Yes: Regular Rate and Rhythm Respiratory: Yes: Regular, CTA Bilaterally Gastrointestinal: Yes: Normal Bowel Sounds, Soft, Other (DRAINING WELL). No: Tenderness Labs: CBC, BMP 05/13/16 08:15 05/13/16 08:15 INR, PTT INR 1.28 (0.82-1.09) H 05/12/16 10:15 Assessment/Plan Problems (1) Elevated liver enzymes Assessment/Plan: gi note appreciate NPO MRCP DONE-- cholecystitis--CBD NOT DILATED iv abx per id--ID F/U leukocytosis trending down ID on board surgical consult noted and i discussed plan with dr hunter---d/w family will pursue cholecystostomy tube--family agree S/P CHOECYSTOSTOMY PLACEMENT Code(s): R74.8 - ABNORMAL LEVELS OF OTHER SERUM ENZYMES (2) CAD (coronary artery disease) Assessment/Plan: hold asa BB Code(s): I25.10 - ATHSCL HEART DISEASE OF [place] CORONARY ARTERY W/O ANG PCTRS (3) Hypokalemia Assessment/Plan: add to iv fluids Code(s): E87.6 - HYPOKALEMIA (4) Bladder cancer Assessment/Plan: s/p surgery and ileal conduit Code(s): C67.9 - MALIGNANT NEOPLASM OF BLADDER, UNSPECIFIED PT EVAL
[2016-05-15] MEDS: HEPARIN NA (PORCINE) 5,000 UNITS/ML 1ML VIAL SQ SCH ×2 (09:39→22:09)
[2016-05-15] MEDS: amLODIPine BESYLATE 5 MG TABLET (FP) PO SCH (09:39)
[2016-05-15] MEDS: METOPROLOL SUCCINATE 25 MG TAB.SR.24H (FP) PO SCH (09:39)
[2016-05-15] MEDS: PANTOPRAZOLE 20 MG TABLET (FP) PO SCH (09:39)
[2016-05-15] MEDS: CHOLECALCIFEROL (VITAMIN D3) 1,000 UNIT TABLET (FP) PO SCH (09:40)
[2016-05-15 09:53] LABS: BASOPHIL 0.3 % (0-2.0); EOSINOPHIL 0.6 % (0-4.5); MCHC 33.4 g/dl (32.0-35.9); MEAN CELL VOLUME 89.7 fl (80-96); MEAN PLT VOLUME 7.7 fl (7.5-11.1); PLATELET COUNT 209 K/MM3 (134-434); RDW 15.4 % (11.9-15.9); WHITE BLOOD COUNT 7.5 K/mm3 (4.0-10.0)
[2016-05-15 10:24] LABS: BILIRUBIN,DIRECT 1.8 mg/dL (0.0-0.2); BILIRUBIN,TOTAL 2.6 mg/dL (0.2-1.0); TOT PROT 5.7 g/dl (6.4-8.2)
[2016-05-15 10:49] LABS: ALBUMIN 2.1 g/dl (3.4-5.0); BILIRUBIN,TOTAL 2.7 mg/dL (0.2-1.0); CALCIUM 8.3 mg/dL (8.5-10.1); CREATININE 1.5 mg/dL (0.7-1.3); TOT PROT 5.7 g/dl (6.4-8.2)
[2016-05-16] MEDS: PIPERACILLIN/TAZOB 3.375 GM/50 ML PRE-DOCKED IVPB SCH ×3 (02:36→17:56)
--- NOTE | 2016-05-16 08:23 | DS ---
Physical Examination Vital Signs: Vital Signs Temperature 98.3 F 05/16/16 07:49 Pulse Rate 64 05/16/16 07:49 Respiratory Rate 20 05/16/16 07:49 Blood Pressure 121/52 05/16/16 07:49 O2 Sat by Pulse Oximetry (%) 94 L 05/15/16 21:00 Cardiovascular: Yes: Regular Rate and Rhythm Respiratory: Yes: Regular, CTA Bilaterally Gastrointestinal: Yes: Normal Bowel Sounds, Soft, Other (choecystostomy tube with drainage) Renal/: Yes: Other (ileal conduit) Labs: CBC, BMP 05/15/16 09:41 05/15/16 09:41 Discharge Summary Reason For Visit: UTI,ELEVATED LIVER ENZYMES Current Active Problems Acute cholecystitis (Acute) Common bile duct stricture (Acute) Elevated liver enzymes (Acute) Hx of primary malignant neoplasm of urinary bladder (Acute) Hypokalemia (Acute) UTI (urinary tract infection) (Acute) Hospital Course: 89M admitted through [facility] ER for evaluation of abdominal pain, nausea, lack of appetite and fever 100.3 at home. This all occurred last night. he was recently admitted and discharged 05/04 after admission for SBO that was treated conservatively. He vomited at home (food material). In ER noted to be febrile with elevated transaminases / ALP / bilirubin and WBC of 13.4. He has never had an upper endoscopy or colonoscopy. Mr. Peterson's tells me that he was seeing Dr. Rodriguez for dysphagia but never had any work-up with him because other medical issues came up. 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: Yes: Dementia Cardio/Vascular: Yes: CAD, HTN, Hyperlipdemia, Other (mild aortic root dilation) Renal/: Yes: Cancer (bladder ca s/p ileal conduet) - Past Surgical History Past Surgical History: Yes: Cystectomy, Stent Additional Surgical History: Pilonidal cyst removel, tonsileectomy, mastoid surgery, ileal conduit Problems (1) Elevated liver enzymes Assessment/Plan: gi note appreciate NPO MRCP DONE-- cholecystitis--CBD NOT DILATED iv abx per id--ID F/U leukocytosis trending down ID on board surgical consult noted and i discussed plan with dr hunter---d/w family will pursue cholecystostomy tube--family agree S/P CHOECYSTOSTOMY PLACEMENT Code(s): R74.8 - ABNORMAL LEVELS OF OTHER SERUM ENZYMES (2) CAD (coronary artery disease) Assessment/Plan: hold asa BB Code(s): I25.10 - ATHSCL HEART DISEASE OF [place] CORONARY ARTERY W/O ANG PCTRS (3) Hypokalemia Assessment/Plan: add to iv fluids Code(s): E87.6 - HYPOKALEMIA (4) Bladder cancer Assessment/Plan: s/p surgery and ileal conduit Code(s): C67.9 - MALIGNANT NEOPLASM OF BLADDER, UNSPECIFIED PT EVAL Condition: Improved - Instructions Referrals: Suzanne Rodney MD [Primary Care Provider] - Disposition: HOME - Home Medications Comprehensive Discharge Medication List: Ambulatory Orders Aspirin 81 mg PO DAILY #0 04/06/11 Cholecalciferol (Vitamin D3) [Vitamin D3] 2,000 unit PO DAILY 09/28/13 Metoprolol Succinate [Toprol XL -] 12.5 mg PO DAILY 09/28/13 Co Q 10 100 mg PO DAILY 04/29/16 Amlodipine Besylate [Norvasc -] 5 mg PO DAILY #30 tablet 05/04/16 Pantoprazole Sodium [Protonix -] 20 mg PO DAILY #30 tablet.ec 05/16/16
[2016-05-16] MEDS: HEPARIN NA (PORCINE) 5,000 UNITS/ML 1ML VIAL SQ SCH ×2 (09:19→22:19)
[2016-05-16] MEDS: METOPROLOL SUCCINATE 25 MG TAB.SR.24H (FP) PO SCH (09:20)
[2016-05-16] MEDS: CHOLECALCIFEROL (VITAMIN D3) 1,000 UNIT TABLET (FP) PO SCH (09:20)
[2016-05-16] MEDS: amLODIPine BESYLATE 5 MG TABLET (FP) PO SCH (09:21)
[2016-05-16] MEDS: PANTOPRAZOLE 20 MG TABLET (FP) PO SCH (09:21)
--- NOTE | 2016-05-16 12:41 | PN ---
Progress Note (short form) - Note Progress Note: no complaints Vital Signs Period Temp Pulse Resp BP Sys/Hutson Pulse Ox Last 24 Hr 97.2 F-98.3 F 64-73 20-20 117-145/52-71 94 cor-rrr llungs clear abd soft,nt +gallbladder drain with clear bile ext no edema CBC, BMP 05/15/16 09:41 05/15/16 09:41 Current Medications Amlodipine Besylate (Norvasc -) 5 mg PO DAILY [facility] Last Admin: 05/16/16 09:21 Dose: 5 mg Cholecalciferol (Vitamin D3 -) 2,000 unit PO DAILY [facility] Last Admin: 05/16/16 09:20 Dose: 2,000 unit Heparin Sodium (Porcine) (Heparin -) 5,000 unit SQ BID [facility] Last Admin: 05/16/16 09:19 Dose: 5,000 unit Metoprolol Succinate (Toprol Xl -) 12.5 mg PO DAILY [facility] Last Admin: 05/16/16 09:20 Dose: 12.5 mg Pantoprazole Sodium (Protonix -) 20 mg PO DAILY [facility] Last Admin: 05/16/16 09:21 Dose: 20 mg Piperacillin Sod/Tazobactam Sod (Zosyn 3.375gm Ivpb (Pre-Docked)) 3.375 gm IVPB Q8H-IV [facility] PRN Reason: Protocol Last Admin: 05/16/16 09:24 Dose: 3.375 gm a/p s/p acute cholycystitis- s/p cholycystotomy tube doing well afebrile normal wbc, lfts improving day #8 antibiotics would d/c antibiotics in am d/w Dr Rodney
[2016-05-17] MEDS: PIPERACILLIN/TAZOB 3.375 GM/50 ML PRE-DOCKED IVPB SCH ×2 (02:14→09:35)
--- NOTE | 2016-05-17 08:52 | DS ---
Physical Examination Vital Signs: Vital Signs Temperature 97.8 F 05/17/16 07:24 Pulse Rate 63 05/17/16 07:24 Respiratory Rate 20 05/17/16 07:24 Blood Pressure 128/59 05/17/16 07:24 O2 Sat by Pulse Oximetry (%) 97 05/16/16 09:00 Neck: Yes: Supple Cardiovascular: Yes: Regular Rate and Rhythm Respiratory: Yes: Regular, CTA Bilaterally Gastrointestinal: Yes: Normal Bowel Sounds, Soft. No: Tenderness Labs: CBC, BMP 05/15/16 09:41 05/15/16 09:41 Discharge Summary Reason For Visit: UTI,ELEVATED LIVER ENZYMES Current Active Problems Acute cholecystitis (Acute) Common bile duct stricture (Acute) Elevated liver enzymes (Acute) Hx of primary malignant neoplasm of urinary bladder (Acute) Hypokalemia (Acute) UTI (urinary tract infection) (Acute) Hospital Course: 89M admitted through [facility] ER for evaluation of abdominal pain, nausea, lack of appetite and fever 100.3 at home. This all occurred last night. he was recently admitted and discharged 05/04 after admission for SBO that was treated conservatively. He vomited at home (food material). In ER noted to be febrile with elevated transaminases / ALP / bilirubin and WBC of 13.4. He has never had an upper endoscopy or colonoscopy. Mr. Peterson's tells me that he was seeing Dr. Rodriguez for dysphagia but never had any work-up with him because other medical issues came up. 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 Cardio/Vascular: Yes: CAD, HTN, Hyperlipdemia, Other (mild aortic root dilation) Renal/: Yes: Cancer (bladder ca s/p ileal conduet) - Past Surgical History Past Surgical History: Yes: Cystectomy, Stent Additional Surgical History: Pilonidal cyst removel, tonsileectomy, mastoid surgery, ileal conduit Problems (1) Elevated liver enzymes Assessment/Plan: gi note appreciate NPO MRCP DONE-- cholecystitis--CBD NOT DILATED iv abx per id--ID F/U leukocytosis trending down ID on board surgical consult noted and i discussed plan with dr hunter---d/w family will pursue cholecystostomy tube--family agree S/P CHOECYSTOSTOMY PLACEMENT Code(s): R74.8 - ABNORMAL LEVELS OF OTHER SERUM ENZYMES (2) CAD (coronary artery disease) Assessment/Plan: hold asa BB Code(s): I25.10 - ATHSCL HEART DISEASE OF [place] CORONARY ARTERY W/O ANG PCTRS (3) Hypokalemia Assessment/Plan: add to iv fluids Code(s): E87.6 - HYPOKALEMIA (4) Bladder cancer Assessment/Plan: s/p surgery and ileal conduit Code(s): C67.9 - MALIGNANT NEOPLASM OF BLADDER, UNSPECIFIED PT EVAL Condition: Improved - Instructions Referrals: Suzanne Rodney MD [Primary Care Provider] - Disposition: HOME - Home Medications Comprehensive Discharge Medication List: Ambulatory Orders Aspirin 81 mg PO DAILY #0 04/06/11 Cholecalciferol (Vitamin D3) [Vitamin D3] 2,000 unit PO DAILY 09/28/13 Metoprolol Succinate [Toprol XL -] 12.5 mg PO DAILY 09/28/13 Co Q 10 100 mg PO DAILY 04/29/16 Amlodipine Besylate [Norvasc -] 5 mg PO DAILY #30 tablet 05/04/16 Pantoprazole Sodium [Protonix -] 20 mg PO DAILY #30 tablet.ec 05/16/16
[2016-05-17] MEDS: PANTOPRAZOLE 20 MG TABLET (FP) PO SCH (09:34)
[2016-05-17] MEDS: CHOLECALCIFEROL (VITAMIN D3) 1,000 UNIT TABLET (FP) PO SCH (09:34)
[2016-05-17] MEDS: amLODIPine BESYLATE 5 MG TABLET (FP) PO SCH (09:34)
[2016-05-17] MEDS: METOPROLOL SUCCINATE 25 MG TAB.SR.24H (FP) PO SCH (09:34)
[2016-05-17] MEDS: HEPARIN NA (PORCINE) 5,000 UNITS/ML 1ML VIAL SQ SCH ×3 (09:35→21:22)
[2016-05-17 10:38] LABS: ALBUMIN 2.2 g/dl (3.4-5.0); CALCIUM 8.3 mg/dL (8.5-10.1); CREATININE 1.3 mg/dL (0.7-1.3); TOT PROT 6.1 g/dl (6.4-8.2)
--- NOTE | 2016-05-17 11:42 | PN ---
Progress Note (short form) - Note Progress Note: no complaints oob to chair Vital Signs Period Temp Pulse Resp BP Sys/Hutson Pulse Ox Last 24 Hr 97.6 F-98.3 F 61-71 20-22 119-147/53-66 94 cor-rrr lungs clear abd soft, nt +iliostomy +ruq drain ext no edema CBC, BMP 05/15/16 09:41 05/17/16 09:33 a/p s/p acute cholycystitis- s/p cholycystotomy tube doing well afebrile normal wbc, lfts improving d/c antibiotics f/u with surgery and IR please call back if needed
[2016-05-17] MEDS ORDERED: BISACODYL 5 MG TABLET.DR (FP) PO ONE (12:30)
[2016-05-17] MEDS: POLYETHYLENE GLYCOL 3350 119 GM BTL PO SCH (12:58)
--- NOTE | 2016-05-18 07:52 | DS ---
Physical Examination Vital Signs: Vital Signs Temperature 98.4 F 05/18/16 07:16 Pulse Rate 78 05/18/16 07:16 Respiratory Rate 20 05/18/16 07:16 Blood Pressure 140/59 05/18/16 07:16 O2 Sat by Pulse Oximetry (%) 94 L 05/17/16 21:00 Cardiovascular: Yes: Regular Rate and Rhythm Respiratory: Yes: Regular, CTA Bilaterally Gastrointestinal: Yes: Normal Bowel Sounds, Soft, Other (ILEAL CONDUIT COLOSTOSTOMY TUBE) Labs: CBC, BMP 05/15/16 09:41 05/17/16 09:33 Discharge Summary Reason For Visit: UTI,ELEVATED LIVER ENZYMES Current Active Problems Acute cholecystitis (Acute) Common bile duct stricture (Acute) Elevated liver enzymes (Acute) Hx of primary malignant neoplasm of urinary bladder (Acute) Hypokalemia (Acute) UTI (urinary tract infection) (Acute) Hospital Course: 89M admitted through [facility] ER for evaluation of abdominal pain, nausea, lack of appetite and fever 100.3 at home. This all occurred last night. he was recently admitted and discharged 05/04 after admission for SBO that was treated conservatively. He vomited at home (food material). In ER noted to be febrile with elevated transaminases / ALP / bilirubin and WBC of 13.4. He has never had an upper endoscopy or colonoscopy. Mr. Peterson's tells me that he was seeing Dr. Rodriguez for dysphagia but never had any work-up with him because other medical issues came up. 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: Yes: Dementia Cardio/Vascular: Yes: CAD, HTN, Hyperlipdemia, Other (mild aortic root dilation) Renal/: Yes: Cancer (bladder ca s/p ileal conduet) - Past Surgical History Past Surgical History: Yes: Cystectomy, Stent Additional Surgical History: Pilonidal cyst removel, tonsileectomy, mastoid surgery, ileal conduit Problems (1) Elevated liver enzymes Assessment/Plan: gi note appreciate NPO MRCP DONE-- cholecystitis--CBD NOT DILATED iv abx per id--ID F/U leukocytosis trending down ID on board surgical consult noted and i discussed plan with dr hunter---d/w family will pursue cholecystostomy tube--family agree S/P CHOECYSTOSTOMY PLACEMENT Code(s): R74.8 - ABNORMAL LEVELS OF OTHER SERUM ENZYMES (2) CAD (coronary artery disease) Assessment/Plan: hold asa BB Code(s): I25.10 - ATHSCL HEART DISEASE OF [place] CORONARY ARTERY W/O ANG PCTRS (3) Hypokalemia Assessment/Plan: add to iv fluids Code(s): E87.6 - HYPOKALEMIA (4) Bladder cancer Assessment/Plan: s/p surgery and ileal conduit Code(s): C67.9 - MALIGNANT NEOPLASM OF BLADDER, UNSPECIFIED DC PLANNING FOR SNF Condition: Improved - Instructions Referrals: Suzanne Rodney MD [Primary Care Provider] - Disposition: HOME - Home Medications Comprehensive Discharge Medication List: Ambulatory Orders Aspirin 81 mg PO DAILY #0 04/06/11 Cholecalciferol (Vitamin D3) [Vitamin D3] 2,000 unit PO DAILY 09/28/13 Metoprolol Succinate [Toprol XL -] 12.5 mg PO DAILY 09/28/13 Co Q 10 100 mg PO DAILY 04/29/16 Amlodipine Besylate [Norvasc -] 5 mg PO DAILY #30 tablet 05/04/16 Pantoprazole Sodium [Protonix -] 20 mg PO DAILY #30 tablet.ec 05/16/16
[2016-05-18] MEDS: METOPROLOL SUCCINATE 25 MG TAB.SR.24H (FP) PO SCH (11:00)
[2016-05-18] MEDS: PANTOPRAZOLE 20 MG TABLET (FP) PO SCH (11:00)
[2016-05-18] MEDS: CHOLECALCIFEROL (VITAMIN D3) 1,000 UNIT TABLET (FP) PO SCH (11:00)
[2016-05-18] MEDS: HEPARIN NA (PORCINE) 5,000 UNITS/ML 1ML VIAL SQ SCH ×2 (11:01→21:23)
[2016-05-18] MEDS: amLODIPine BESYLATE 5 MG TABLET (FP) PO SCH (11:01)
[2016-05-18] MEDS: POLYETHYLENE GLYCOL 3350 119 GM BTL PO SCH ×2 (11:01→21:23)
[2016-05-18] MEDS ORDERED: MAGNESIUM HYDROX 2400MG/30ML ORAL SUSPENSION 30 ML CUP PO ONE ×2 (12:30→14:45)
[2016-05-19] MEDS: POLYETHYLENE GLYCOL 3350 119 GM BTL PO SCH ×3 (06:49→21:47)
[2016-05-19] MEDS: PANTOPRAZOLE 20 MG TABLET (FP) PO SCH (09:54)
[2016-05-19] MEDS: METOPROLOL SUCCINATE 25 MG TAB.SR.24H (FP) PO SCH (09:54)
[2016-05-19] MEDS: amLODIPine BESYLATE 5 MG TABLET (FP) PO SCH (09:55)
[2016-05-19] MEDS: CHOLECALCIFEROL (VITAMIN D3) 1,000 UNIT TABLET (FP) PO SCH (09:56)
[2016-05-19] MEDS: HEPARIN NA (PORCINE) 5,000 UNITS/ML 1ML VIAL SQ SCH ×2 (09:56→21:45)
--- NOTE | 2016-05-19 11:06 | PN ---
Progress Note, Physician Chief Complaint: daughter gone to see roscoe barron right now the y criselda cruz spoke to social sciences lecturer once bed availabe patient will go - Current Medication List Current Medications: Active Medications Amlodipine Besylate (Norvasc -) 5 mg PO DAILY [facility] Last Admin: 05/19/16 09:55 Dose: 5 mg Cholecalciferol (Vitamin D3 -) 2,000 unit PO DAILY [facility] Last Admin: 05/19/16 09:56 Dose: 2,000 unit Heparin Sodium (Porcine) (Heparin -) 5,000 unit SQ BID [facility] Last Admin: 05/19/16 09:56 Dose: 5,000 unit Metoprolol Succinate (Toprol Xl -) 12.5 mg PO DAILY [facility] Last Admin: 05/19/16 09:54 Dose: 12.5 mg Pantoprazole Sodium (Protonix -) 20 mg PO DAILY [facility] Last Admin: 05/19/16 09:54 Dose: 20 mg Polyethylene Glycol (Miralax (For Daily Use) -) 17 gm PO TID [facility] Last Admin: 05/19/16 06:49 Dose: 17 gm - Objective Vital Signs: Vital Signs Temperature 98.0 F 05/19/16 07:14 Pulse Rate 108 H 05/19/16 07:14 Respiratory Rate 64 H 05/19/16 07:14 Blood Pressure 145/60 05/19/16 07:14 O2 Sat by Pulse Oximetry (%) 94 L 05/18/16 21:00 Constitutional: Yes: Calm Cardiovascular: Yes: Regular Rate and Rhythm, S1, S2 Respiratory: Yes: CTA Bilaterally Gastrointestinal: Yes: Soft, Other (cholecystomtomy tube ileal conduit) Edema: No Neurological: Yes: Alert, Oriented Labs: CBC, BMP 05/15/16 09:41 05/17/16 09:33 INR, PTT INR 1.28 (0.82-1.09) H 05/12/16 10:15 Problem List - Problems (1) Elevated liver enzymes Assessment/Plan: s/p cholostolmy bilirubin elevated but trending down Code(s): R74.8 - ABNORMAL LEVELS OF OTHER SERUM ENZYMES (2) CAD (coronary artery disease) Assessment/Plan: asa and BB Code(s): I25.10 - ATHSCL HEART DISEASE OF [place] CORONARY ARTERY W/O ANG PCTRS (3) Hypokalemia Assessment/Plan: add to iv fluids Code(s): E87.6 - HYPOKALEMIA (4) Bladder cancer Assessment/Plan: s/p surgery and ileal conduit Code(s): C67.9 - MALIGNANT NEOPLASM OF BLADDER, UNSPECIFIED Assessment/Plan awiaitng SNF dc once bed availalbe
[2016-05-19] MEDS ORDERED: MAGNESIUM HYDROX 2400MG/30ML ORAL SUSPENSION 30 ML CUP PO ONE (20:00)
[2016-05-19] MEDS ORDERED: SODIUM PHOSPHATE/NA BIPHOS 133 ML ENEMA RC ONE (20:00)
[2016-05-20] MEDS: POLYETHYLENE GLYCOL 3350 119 GM BTL PO SCH (06:22)
[2016-05-20] MEDS: HEPARIN NA (PORCINE) 5,000 UNITS/ML 1ML VIAL SQ SCH (09:25)
[2016-05-20] MEDS: CHOLECALCIFEROL (VITAMIN D3) 1,000 UNIT TABLET (FP) PO SCH (09:25)
[2016-05-20] MEDS: PANTOPRAZOLE 20 MG TABLET (FP) PO SCH (09:25)
[2016-05-20] MEDS: amLODIPine BESYLATE 5 MG TABLET (FP) PO SCH (09:32)
[2016-05-20] MEDS: METOPROLOL SUCCINATE 25 MG TAB.SR.24H (FP) PO SCH (09:33)
--- NOTE | 2016-05-20 10:16 | DS ---
Physical Examination Vital Signs: Vital Signs Temperature 97.6 F 05/20/16 07:20 Pulse Rate 63 05/20/16 07:20 Respiratory Rate 18 05/20/16 07:20 Blood Pressure 145/69 05/20/16 07:20 O2 Sat by Pulse Oximetry (%) 94 L 05/19/16 21:00 Findings/Remarks: hard stool with liquid stool after enema Constitutional: Yes: Calm, Thin Neck: Yes: Trachea Midline Cardiovascular: Yes: Regular Rate and Rhythm, S1, S2 Respiratory: Yes: CTA Bilaterally Gastrointestinal: Yes: Normal Bowel Sounds, Soft, Other (cholostomy tube ileal conduit) Edema: No Neurological: Yes: Alert, Oriented Labs: CBC, BMP 05/15/16 09:41 05/17/16 09:33 Discharge Summary Reason For Visit: UTI,ELEVATED LIVER ENZYMES Current Active Problems Acute cholecystitis (Acute) Common bile duct stricture (Acute) Elevated liver enzymes (Acute) Hx of primary malignant neoplasm of urinary bladder (Acute) Hypokalemia (Acute) UTI (urinary tract infection) (Acute) Hospital Course: Initial Comments: 05/08/16 05:38 CHIEF COMPLAINT: abdominal cramping, chest tightness HISTORY OF PRESENT ILLNESS: 89 yo M with hx of HTN, HLD, MD (2005), urostomy s/ p bladder CA, GERD, and periumbilical hernia, was BIBEMS to the emergency department with complaints of abdominal cramping and chest tightness. Patient' s states around 9:30 last night the patient was complaining of lower abdominal cramping and "seemed like he was trying to vomit but never did." Overnight he complained of chills and then "chest tightness", and states "as soon as he said that I called the ambulance." Patient's states the last bowel movement he had was yesterday. Patient denies any current pain. denies any runny nose, cough, or sneezing. Patient was recently discharged from this hospital with diagnosis of partial self-resolving SBO. SOCIAL HISTORY: Lives at home with . Denies tobacco, alcohol, illicit drug use. SURGICAL HISTORY: mastoid, tonsils, pilonidal cysts ,bladder cancer s/p surgery ALLERGIES: No known drug allergies found to have elevated LFT - acute cholecystits- s/p cholocystostomy tube biliary drainage now lft trending down hypokalemia now improved CAD on asa and BB htn on norvasc Condition: Improved - Instructions Diet, Activity, Other Instructions: FU with Dr barnes in 2 weeks FU with IR in 2 weeks to decide removal of biliary tube removal Referrals: Suznane Rodney MD [Primary Care Provider] - Disposition: [facility] - Home Medications Comprehensive Discharge Medication List: Ambulatory Orders Aspirin 81 mg PO DAILY #0 04/06/11 Cholecalciferol (Vitamin D3) [Vitamin D3] 2,000 unit PO DAILY 09/28/13 Metoprolol Succinate [Toprol XL -] 12.5 mg PO DAILY 09/28/13 Co Q 10 100 mg PO DAILY 04/29/16 Amlodipine Besylate [Norvasc -] 5 mg PO DAILY #30 tablet 05/04/16 Pantoprazole Sodium [Protonix -] 20 mg PO DAILY #30 tablet.ec 05/16/16
[2016-05-20 10:28] VITALS: BP 110/60; PULSE 68; TEMP 98.4
== END 2016-05-20 13:40 | DRG 871 ==
LOC: JER 04:59 → JERBED 07:43 → UNDOADMIN 07:49 → J5S 18:00
PROVIDERS: ADMIT Family Medicine; ATTEND Family Medicine
PROC: 0F9430Z Drainage of Gallbladder with Drainage Device, Percutaneous Approach (ICD-10-PCS; principal; 2016-05-12)
DX: A41.9 Sepsis, unspecified organism (principal); K83.1 Obstruction of bile duct; K81.0 Acute cholecystitis; N39.0 Urinary tract infection, site not specified; K21.9 Gastro-esophageal reflux disease without esophagitis; I10 Essential (primary) hypertension; E78.5 Hyperlipidemia, unspecified; I25.2 Old myocardial infarction; Z85.51 Personal history of malignant neoplasm of bladder; B96.20 Unspecified Escherichia coli [E. coli] as the cause of diseases classified elsewhere; R74.8 Abnormal levels of other serum enzymes; I25.10 Atherosclerotic heart disease of native coronary artery without angina pectoris; R74.0 Nonspecific elevation of levels of transaminase and lactic acid dehydrogenase [LDH]; E87.6 Hypokalemia
CPT/HCPCS: 36415; 47490; 71010-TC; 74181-TC; 76098-TC; 76705-TC; 76998-TC; 80053; 80076; 81003; 81015; 82550; 82803; 83605; 83690; 83735; 84484; 85025; 85027; 85610; 85730; 86850; 86900; 86901; 87040; 87070; 87075; 87086; 87186; 87205; 87804; 87899; 93005; 93010; 97116-GP; 97162-PG; 99285-25; A4358; C1729; C1769; J1644